=== PATIENT | female | born 1965 | race Hispanic/Latino ===

== ENCOUNTER 2016-09-13 10:33 | Inpatient (IN) | payer OTHER ==
[2016-09-13] MEDS ORDERED: ZOFRAN IV ONE (11:28)
[2016-09-13] MEDS ORDERED: NACL 0.9% 1000 ML 1,000 ML IV ONE (11:28)
--- NOTE | 2016-09-13 11:33 | Emergency Department Report ---
HPI - General Chief Complaint: Syncope Time Seen by Provider: 09/13/16 11:18 - HPI HPI: Room 7 The patient is a 50-year-old female presenting with a chief complaint of weakness. The patient states for 1 week she has felt weak. The patient was taken a blood pressure home and last week he was noted to be 90/70. Today the patient was found to be 58/42 at home also scolded brought to the emergency department. The patient is a history of hypertension and states she's been taking lisinopril every day except for today. Patient does admit to slight headache which began yesterday. Patient denies chest pain or shortness of breath. Patient does admit to dizziness nausea and vomiting. The patient states last night she noticed some blood in her stool. Patient denies history of melena Location: [see above] Duration: One week Quality:, Weakness Severity: Moderate Modifying factors: [see above] Context: [see above] Mode of transportation: [not driving] ED Past Medical Hx - Past Medical History Additional medical history: vasculitis, chronic pain - Surgical History Additional Surgical History: left hand - Family History Family history: no significant - Social History Smoking Status: Current Every Day Smoker (1/3 pack per day) Substance Use Type: None (denies illicit drug use) - Medications Home Medications: Home Medications Medication Instructions Recorded Confirmed Last Taken Type Lisinopril [Zestril] 20 mg PO QDAY 06/17/13 09/13/16 07/13/13 14:00 History Clindamycin [Clindamycin CAP] 300 mg PO BID 09/13/16 09/13/16 Unknown History Gabapentin [Neurontin] 300 mg PO TID 09/13/16 09/13/16 Unknown History Sulfamethoxazole/Trimethoprim 1 tab PO BID 09/13/16 09/13/16 Unknown History [Bactrim DS TAB] busPIRone [Buspar] 10 mg PO BID 09/13/16 09/13/16 Unknown History traZODone [Desyrel] 100 mg PO QHS 09/13/16 09/13/16 Unknown History ED Review of Systems ROS: Stated complaint: LOW BP Other details as noted in HPI Comment: All other systems reviewed and negative Constitutional: weakness Eyes: denies: eye pain, eye discharge, vision change ENT: denies: ear pain, throat pain Respiratory: denies: cough, shortness of breath, wheezing Cardiovascular: denies: chest pain, palpitations Endocrine: no symptoms reported Gastrointestinal: abdominal pain, nausea, vomiting Genitourinary: denies: urgency, dysuria, discharge Musculoskeletal: denies: back pain, joint swelling, arthralgia Skin: denies: rash, lesions Neurological: headache, weakness Psychiatric: denies: anxiety, depression Hematological/Lymphatic: denies: easy bleeding, easy bruising Physical Exam - Physical Exam Vital Signs: Vital Signs 09/13/16 10:39 Temperature 97.4 F L Pulse Rate 111 H Respiratory 20 Rate Blood Pressure 74/30 O2 Sat by Pulse 97 Oximetry Physical Exam: GENERAL: The patient is well-developed well-nourished female lying on stretcher appearing lethargic but not in any acute distress. [] HEENT: Normocephalic. Atraumatic. Extraocular motions are intact. Patient has moist mucous membranes. NECK: Supple. Trachea midline CHEST/LUNGS: Clear to auscultation. There is no respiratory distress noted. HEART/CARDIOVASCULAR: Regular. There is tachycardia. There is no gallop rub or murmur. ABDOMEN: Abdomen is soft, nontender. Patient has normal bowel sounds. There is no abdominal distention. SKIN: There is no rash. There is no edema. There is no diaphoresis. NEURO: The patient is awake, alert, and oriented. The patient is cooperative. The patient has no focal neurologic deficits. The patient has normal speech. Cranial nerves II through XII grossly intact, no drift MUSCULOSKELETAL: There is no evidence of acute injury. ED Course Vital Signs 09/13/16 10:39 Temperature 97.4 F L Pulse Rate 111 H Respiratory 20 Rate Blood Pressure 74/30 O2 Sat by Pulse 97 Oximetry ED Medical Decision Making - Lab Data Result diagrams: 09/13/16 11:28 09/13/16 11:28 Laboratory Tests 09/13/16 09/13/16 09/13/16 11:28 11:28 11:28 WBC 12.0 H RBC 4.50 Hgb 12.0 Hct 37.3 MCV 83 MCH 27 L MCHC 32 RDW 16.0 H Plt Count 430 Lymph % (Auto) 9.5 L [place] % (Auto) 7.8 H Eos % (Auto) 0.2 Baso % (Auto) 0.2 Lymph # 1.1 L [place] # 0.9 H Eos # 0.0 Baso # 0.0 Seg Neutrophils % 82.3 H Seg Neutrophils # 9.8 H PT 13.6 INR 1.05 APTT 29.3 Sodium 131 L Potassium 4.7 Chloride 90.9 L Carbon Dioxide 18 L Anion Gap 27 BUN 33 H Creatinine 3.7 H Estimated GFR 13 BUN/Creatinine Ratio 8.91 Glucose 125 H Calcium 9.4 Total Bilirubin 0.7 AST 22 ALT 14 Alkaline Phosphatase 105 Total Creatine Kinase CK-MB (CK-2) CK-MB (CK-2) Rel Index Troponin T Total Protein 7.4 Albumin 3.6 L Albumin/Globulin Ratio 0.9 Lipase 217 H Blood Type Antibody Screen 09/13/16 09/13/16 11:28 11:36 WBC RBC Hgb Hct MCV MCH MCHC RDW Plt Count Lymph % (Auto) [place] % (Auto) Eos % (Auto) Baso % (Auto) Lymph # [place] # Eos # Baso # Seg Neutrophils % Seg Neutrophils # PT INR APTT Sodium Potassium Chloride Carbon Dioxide Anion Gap BUN Creatinine Estimated GFR BUN/Creatinine Ratio Glucose Calcium Total Bilirubin AST ALT Alkaline Phosphatase Total Creatine Kinase 72 CK-MB (CK-2) 3.6 CK-MB (CK-2) Rel Index 5.0 H Troponin T < 0.010 Total Protein Albumin Albumin/Globulin Ratio Lipase Blood Type O POSITIVE Antibody Screen Negative - Radiology Data Radiology results: report reviewed (CT abdomen and pelvis, CT head), image reviewed (CT abdomen and pelvis, CT head) CT abdomen and pelvis purposes read by radiologist) (-abnormal left kidney. Further imaging is recommended. Cannot entirely exclude a left renal mass. Mildly dilated common bile duct without obvious cholelithiasis. Circumferential thickening of the ileum. Enteritis? Crohn's disease? CT head (read by radiologist)-no acute intracranial abnormality - Differential Diagnosis hypotension secondary to antihypertensive medication, sepsis, GI bleed Critical care attestation.: If time is entered above; I have spent that time in minutes in the direct care of this critically ill patient, excluding procedure time. ED Disposition Clinical Impression: Hypotension Disposition: OP ADMITTED IP TO THIS HOSP Is pt being admited?: Yes Does the pt Need Aspirin: No Condition: Serious Referrals: PRIMARY CARE, [Primary Care Provider] - 3-5 Days Time of Disposition: 17:20 (hospitalist notified) Blank Doc - Documentation Documentation: Central line note Consent was verbally Location: Right femoral The site was prepped and draped in a sterile fashion Site was anesthetized with lidocaine 1% approximately 10 mL Landmarks identified and needle introduced until return of dark nonpulsatile blood Blood was obtained on second attempt Guidewire introduced using Seldinger technique and triple lumen catheter placed over guidewire There was blood return from all 3 ports Catheter was secured to patient by adhesive The patient tolerated procedure well There were no complications
[2016-09-13 11:59] LABS: Basophils % (Auto) 0.2 % (0.0-1.8); Eosinophils % (Auto) 0.2 % (0.0-4.3); Hematocrit 37.3 % (30.3-42.9); Mean Corpuscular HGB Conc 32 % (30-34); Mean Corpuscular Hemoglobin 27 pg (28-32); Mean Corpuscular Volume 83 fl (79-97); Platelet Count 430 K/mm3 (140-440)
[2016-09-13 12:09] LABS: INR 1.05 (0.87-1.13)
[2016-09-13 12:10] LABS: Partial Thromboplastin Time 29.3 Sec. (24.2-36.6)
[2016-09-13 12:21] LABS: Creatine Kinase MB 3.6 ng/mL (0.0-4.0)
[2016-09-13 12:22] LABS: Creatine Kinase 72 units/L (30-135)
[2016-09-13 12:23] LABS: Albumin 3.6 g/dL (3.9-5); Albumin/Globulin Ratio 0.9 %; BUN/Creatinine Ratio 8.91; Bilirubin,Total 0.7 mg/dL (0.1-1.2); Calcium 9.4 mg/dL (8.4-10.2); Chloride 90.9 mmol/L (98-107); Potassium 4.7 mmol/L (3.6-5.0); Total Protein 7.4 g/dL (6.3-8.2)
--- NOTE | 2016-09-13 13:19 | Admit Criteria Form ---
Admission Criteria Documentation: CARDIOLOGY GRG Clinical Indications for Admission to Inpatient Care ( Place 'X' for any and all applicable criteria): Hospital admission is needed for appropriate care of the patient because of ANY ONE of the following (1): [ X] I. Hemodynamic instability as indicated by ALL of the following (1)(2)(3 )(4)(5) [X ]a) Vital signs or other findings not as expected for chronic patient condition or baseline [X ]b) Instability indicated by ANY ONE of the following: [ X]i) Hypotension [ ]ii) Symptomatic Tachycardia unresponsive to treatment ( e.g., analgesia, fluids, sedation as indicated) [ ]iii) Inadequate perfusion indicated by ANY ONE of the following: [ ] 1) Lactic acidosis (> 2 mmol/L) [ ] 2) New abnormal capillary refill (> 3 seconds) [ ] 3) Reduced urine output [ ] 4) New altered mental status [ ]iv) Orthostatic vital sign changes unresponsive to treatment (e.g., fluids) [ ]v) IV inotropic or vasopressor medication required to maintain adequate blood pressure or perfusion [ ] II. Severe heart failure as indicated by ANY ONE of the following(17)(18) [ ]a) Respiratory distress [ ]b) Hypotension [ ]c) Anasarca (refractory to outpatient therapy) [ ]d) Cardiac arrhythmias of immediate concern [ ]e) Myocardial ischemia [ ] III. Cardiac arrhythmias or findings of immediate concern indicated by ANY ONE of the following (19)(20): [ ] a) Heart rhythms that are inherently dangerous or unstable indicated by ANY ONE of the following (21)(22)(23): [ ] i) Resuscitated ventricular fibrillation or cardiac arrest [ ] ii) Ventricular escape rhythm [ ] iii) Sustained ventricular tachycardia (30 seconds or more of ventricular rhythm at greater than 100 beats per minute) [ ] iv) Nonsustained ventricular tachycardia and ANY ONE of the following: [ ] 1) Suspected cardiac ischemia as cause or consequence of ventricular tachycardia [ ] 2) In setting of acute myocarditis [ ] b) Unstable cardiac conduction defects indicated by ANY ONE of the following(23)(24)(25) [ ] i) Type II second-degree atrioventricular block [ ]ii) Third-degree atrioventricular block [ ]iii) New-onset left bundle branch block with suspected myocardial ischemia [ ]c) Any heart rhythm and ANY ONE of the following (21)(22)(26)(27) (28) [ ] i) Continuous long-term ECG monitoring needed (e.g., initiation of drug requiring monitoring for more than 24 hours) [ ] ii) Patient has automatic implanted cardioverter defibrillator that is repeatedly firing, malfunctioning, or in need of immediate adjustment of settings beyond the scope of ambulatory or observation care [ ]d) Heart rhythms of concern due to ANY ONE of the following: [ ] i) Hypotension [ ] ii) Respiratory distress [ ] iii) Association with other significant symptoms (e.g., bradycardia with syncope or ongoing dizziness, supraventricular tachycardia with chest pain (14)(15)(17) [ ] IV. Monitoring for cardiac contusion beyond the scope of observation care needed [A](30)(31)(32) [ ] V. Surgical or device complication (e.g., valve replacement complication , pacemaker dysfunction) (35)(41)(44)(45)(46) [ ] . Inpatient palliative care needed. [B](49) Also use Inpatient Palliative Care Criteria [ ] VII. Nonbacterial thrombotic (marantic) endocarditis (36)(43)(47)(48) [ ] VIII. Cardiology condition, symptom, or finding for which emergency and observation care has failed or are not considered appropriate. [ ] IX. Acute valvular disease requiring inpatient as indicated by ANY ONE of the following (41) [ ]a) Acute valvular regurgitation (42) [ ]b) Noninfectious valvulitis (43) [ ]c) Obstructive valve thrombosis [ ]d) Paravalvular leak [ ]e) Other significant valvular disorder remaining after emergency or observation level of care (as appropriate) [ ]X. Pericardial disease requiring inpatient treatment as indicated by ANY ONE of the following (33)(34)(35)(36)(37) [ ]a) Suspected tamponade (38)(39)(40) [ ]b) Hemopericardium [ ]c) Other significant pericardial disorder remaining after emergency or observation level of care (as appropriate) [ ] XI. Cardiac ischemia beyond scope of emergency and observation care. [ ] XII. Hypertension requiring inpatient treatment as indicated by ANY ONE of the following (6)(7)(8) [ ]a) SBP greater than 220 mm Hg or DBP greater than 120 mmHg despite treatment [ ]b) SBP greater than 140 mm Hg or DBP greater than 100 mm Hg with evidence of acute end organ damage as indicated by ANY ONE of the following [ ] i) Altered mental status [ ] ii) Acute renal failure as indicated by new onset of ANY ONE of the following (9)(10)(11)(12)(13) [ ]1) 3-fold rise in serum creatinine from baseline [ ]2) Serum creatinine greater than 4 mg/dL ( 354 micromoles/L) with acute rise greater than 0.5 mg/dL (44.2 micromoles/L) [ ]3) Reduction of more than 75% in estimated glomerular filtration rate from baseline [ ]4) Estimated glomerular filtration rate less than 35 mL/min/1.73m2 (0.59 mL/sec/1.73m2) in child up to 18 years of age [ ]5) Cessation of urine output indicated by ALL of the following [ ]A. Adequate volume status [ ]B. Inadequate urine output as indicated by ANY ONE of the following [ ]a. Urine output less than 0.3 mL/kg/hr for 24 hours [ ]b. Anuria (urine output less than 0.1 mL/kg/hr) for 12 hours [ ] iii) Aortic dissection [ ] iv) Myocardial Ischemia [ ] v) Left ventricular heart failure [ ]vi) Retinal Hemorrhage [ ]vii) Other significant finding [ ]c) Hypertension in child requiring inpatient treatment as indicated by ALL of the following(14)(15)(16) [ ] i) Outpatient treatment not effective, not available, or not appropriate [ ]ii) SBP or DBP greater than 95th percentile for age [ ]iii) Evidence of acute end organ damage as indicated by ANY ONE of the following [ ]1) Altered mental status [ ]2) Acute renal failure as indicated by new onset of ANY ONE of the following(9)(10)(11)(12)(13) [ ]A. 3-fold rise in serum creatinine from baseline [ ]B. Serum creatinine greater than 4 mg/dL (354 micromoles/L) with acute rise greater than 0.5 mg/dL (44.2 micromoles/L) [ ]C. Reduction of more than 75% in estimated glomerular filtration rate from baseline [ ]D. Estimated glomerular filtration rate less than 35 mL/min/1.73m2 (0.59 mL/sec/1.73m2) in child up to 18 years of age [ ]E. Cessation of urine output indicated by ALL of the following [ ]a. Adequate volume status [ ]b. Inadequate urine output as indicated by ANY ONE of the following [ ]i) Urine output less than 0.3 mL/kg/hr for 24 hours [ ]ii) Anuria ( urine output less than 0.1 mL/kg/hr) for 12 hours [ ]3) Severe headache [ ]4) Visual disturbance [ ]5) Retinal hemorrhage [ ]6) Other significant finding [ ]XIII. Complications of transplanted heart indicated by ANY ONE of the following(61): [ ]a) Acute graft rejection requiring inpatient management (eg, intravenous immunosuppression)(62)(63) [ ]b) Acute graft heart failure indicated by ANY ONE of the following(64): [ ]i) Hemodynamic instability [ ]ii) Cardiac arrhythmias of immediate concern [ ]iii) Pulmonary edema that is very severe (eg, mechanical ventilation needed, imminent or likely, need for 100% oxygen to keep oxygen saturation above 90%) [ ]iv) Pulmonary edema that is persistent as indicated by ALL of the following: [ ]1) New need for oxygen therapy to keep oxygen saturation above 90% (or increased FiO2 need from baseline) [ ]2) Has not improved sufficiently with emergency department or observation care IV diuretics or other heart failure treatments[E] [ ]v) Altered mental status that is severe or persistent [ ]vi) Increased creatinine (new on laboratory test) with reduction of more than 50% in estimated glomerular filtration rate from baseline [ ]vii) Progressively (ongoing) rising creatinine (known from past laboratory test) with reduction of more than 25% in estimated glomerular filtration rate from baseline [ ]viii) Acute renal failure [ ]ix) Acute peripheral ischemia (eg, examination shows pulseless, cool, mottled, or cyanotic extremity) [ ]x) Pulmonary artery catheter monitoring needed [ ]xi) Other sign or symptom of heart failure requiring inpatient treatment (ie, too severe or not responsive to outpatient and observation care treatment) [ ]c) Infection requiring inpatient management (eg, Hemodynamic instability, need for intravenous antimicrobial treatment)(66)(67)(68)(69)(70) [ ]d) Cardiac allograft vasculopathy requiring inpatient management ( eg evidence of cardiac ischemia)(71) [ ]e) Other complication of transplanted heart (eg, stroke, severe pulmonary hypertension, severe valvular dysfunction) requiring inpatient management(72) The original [facility] content created by [facility] has been revised. The portions of the content which have been revised are identified through the use of italic text or in bold, and [facility] has neither reviewed nor approved the modified material. All other unmodified content is copyright [facility] [employer]. Please see references footnoted in the original [facility] edition 2016 Admission Criteria Met: Yes
--- NOTE | 2016-09-13 14:42 | Cat Scan Report ---
CT scan of head without contrast: Findings Ventricles are normal in size and midline in location. No evidence of acute ischemia, hemorrhage or mass. 1 cm focal area of low attenuation left basal ganglia may be from chronic lacunar infarct. No hemorrhage. No extra-axial fluid collection. Normal brainstem and cerebellum. Normal sinuses and master air cells. Impression: No acute intracranial abnormality.
--- NOTE | 2016-09-13 15:00 | Cat Scan Report ---
CT OF THE ABDOMEN AND PELVIS WITHOUT CONTRAST HISTORY: Abdominal pain, renal failure. TECHNIQUE: Helical CT without contrast. Sagittal and coronal reformatted images. FINDINGS: The left kidney is abnormal. There are multiple small calcifications near the superior pole the left kidney. This does not have the typical appearance of renal stones. The etiology of this is unclear. Consider correlation with IV contrast exam, non-contrast MRI or ultrasound. The right kidney is unremarkable. Normal ureters and bladder. Normal adrenal glands. The common bile duct is mildly dilated measuring up to 1.2 cm. No obvious gallstones. No intrahepatic biliary dilatation. Please correlate with the patient's clinical presentation. Normal liver, pancreas, spleen, aorta, uterus and adnexa. There is mild circumferential thickening of the terminal small bowel loops. No obstruction or mass. The remainder of the bowel loops are within normal limits given no oral contrast was administered. Normal appendix. The lung bases are clear. Normal heart size. No suspicious bony lesion. IMPRESSION: Abnormal left kidney as outlined above. Further imaging is recommended. I cannot entirely exclude a left renal mass. Mildly dilated common bile duct without obvious cholelithiasis. Correlate with the patient and consider further evaluation with ultrasound. Circumferential thickening of the ileum. Enteritis? Crohn's disease?
[2016-09-13] MEDS ORDERED: XYLOCAINE 1% 20 mL ONE (18:13)
[2016-09-13] MEDS: LEVOPHED DRIP 4 MG/NS 250 ML 4 MG/250 ML BAG IV SCH ×10 (19:44→23:17)
--- NOTE | 2016-09-13 22:04 | History and Physical Report ---
History of Present Illness Date of examination: 09/13/16 Past History Past Medical History: hypertension Medications and Allergies Allergies Allergy/AdvReac Type Severity Reaction Status Date / Time aspirin Allergy Unknown Verified 09/13/16 10:39 cephalexin monohydrate Allergy Rash Verified 07/13/13 17:54 [From Keflex] Home Medications Medication Instructions Recorded Confirmed Last Taken Type Lisinopril [Zestril] 20 mg PO QDAY 06/17/13 09/13/16 07/13/13 14:00 History Clindamycin [Clindamycin CAP] 300 mg PO BID 09/13/16 09/13/16 Unknown History Gabapentin [Neurontin] 300 mg PO TID 09/13/16 09/13/16 Unknown History Sulfamethoxazole/Trimethoprim 1 tab PO BID 09/13/16 09/13/16 Unknown History [Bactrim DS TAB] busPIRone [Buspar] 10 mg PO BID 09/13/16 09/13/16 Unknown History traZODone [Desyrel] 100 mg PO QHS 09/13/16 09/13/16 Unknown History Active Meds: Active Medications Norepinephrine (Levophed Drip 4 Mg/Ns 250 Ml) 4 mg in 250 mls @ 7.5 mls/hr IV TITR JANNETH; 2 MCG/MIN PRN Reason: Protocol Last Admin: 09/13/16 21:53 Dose: 8 mcg/min, 30 mls/hr Review of Systems All systems: negative Exam - Constitutional Vitals: Temp Pulse Resp BP Pulse Ox 97.4 F L 101 H 14 75/48 96 09/13/16 10:39 09/13/16 18:30 09/13/16 19:00 09/13/16 19:00 09/13/16 19:00 General appearance: Present: no acute distress, well-nourished - EENT Eyes: Present: PERRL ENT: hearing intact, clear oral mucosa - Neck Neck: Present: supple, normal ROM - Respiratory Respiratory effort: normal Respiratory: bilateral: CTA - Cardiovascular Heart Sounds: Present: S1 & S2. Absent: rub, click - Extremities Extremities: pulses symmetrical, No edema Peripheral Pulses: within normal limits - Abdominal General gastrointestinal: Present: soft, non-tender, non-distended, normal bowel sounds Female genitourinary: Present: normal - Integumentary Integumentary: Present: clear, warm, dry - Musculoskeletal Musculoskeletal: gait normal, strength equal bilaterally - Psychiatric Psychiatric: appropriate mood/affect, intact judgment & insight - Neurologic Neurologic: CNII-XII intact, moves all extremities Results - Labs CBC & Chem 7: 09/13/16 11:28 09/13/16 11:28 Labs: Abnormal lab results 09/13/16 09/13/16 09/13/16 Range/Units 11:28 11:28 11:28 WBC 12.0 H (4.5-11.0) K/mm3 MCH 27 L (28-32) pg RDW 16.0 H (13.2-15.2) % Lymph % (Auto) 9.5 L (13.4-35.0) % [place] % (Auto) 7.8 H (0.0-7.3) % Lymph # 1.1 L (1.2-5.4) K/mm3 [place] # 0.9 H (0.0-0.8) K/mm3 Seg Neutrophils % 82.3 H (40.0-70.0) % Seg Neutrophils # 9.8 H (1.8-7.7) K/mm3 Sodium 131 L (137-145) mmol/L Chloride 90.9 L (98-107) mmol/L Carbon Dioxide 18 L (22-30) mmol/L BUN 33 H (7-17) mg/dL Creatinine 3.7 H (0.7-1.2) mg/dL Glucose 125 H (65-100) mg/dL CK-MB (CK-2) Rel Index 5.0 H (0-4) Albumin 3.6 L (3.9-5) g/dL Lipase 217 H (13-60) units/L Assessment and Plan - Patient Problems (1) Acute renal failure Current Visit: Yes Status: Acute Qualifiers: Acute renal failure type: with acute tubular necrosis Qualified Code(s): N17.0 - Acute kidney failure with tubular necrosis (2) Hypotension Current Visit: Yes Status: Acute Qualifiers: Hypotension type: H Trimester: T
[2016-09-13] MEDS ORDERED: TYLENOL PO PRN (22:05)
[2016-09-13] MEDS ORDERED: DULCOLAX PR PRN (22:05)
[2016-09-13] MEDS ORDERED: PERCOCET 5/325 PO PRN (22:05)
[2016-09-13] MEDS ORDERED: MILK OF MAGNESIA PO PRN (22:05)
[2016-09-14] MEDS: LEVOPHED DRIP 4 MG/NS 250 ML 4 MG/250 ML BAG IV SCH ×5 (00:03→19:26)
[2016-09-14] MEDS ORDERED: D5NS 1,000 ML IV ONE (01:25)
[2016-09-14] MEDS: D5NS 1,000 ML IV SCH ×2 (01:30→09:19)
[2016-09-14] MEDS: BUSPAR PO SCH ×3 (01:58→21:28)
[2016-09-14 04:22] LABS: Bacteria,Urine 1+ /HPF (Negative); Bilirubin,Urine NEG (Negative); Blood,Urine LG (Negative); Ketones,Urine NEG (Negative); Leukocyte Esterase,Urine TR (Negative); Mucus,Urine FEW /HPF; Nitrite,Urine NEG (Negative); Urobilinogen,Urine < 2.0 mg/dL (<2.0)
[2016-09-14 06:51] LABS: Basophils % (Auto) 0.2 % (0.0-1.8); Eosinophils % (Auto) 0.4 % (0.0-4.3); Hematocrit 33.6 % (30.3-42.9); Hemoglobin 11.2 gm/dl (10.1-14.3); Mean Corpuscular HGB Conc 33 % (30-34); Mean Corpuscular Hemoglobin 27 pg (28-32); Mean Corpuscular Volume 81 fl (79-97); Platelet Count 348 K/mm3 (140-440); Red Blood Count 4.13 M/mm3 (3.65-5.03); Red Cell Distribution Width 16.1 % (13.2-15.2); White Blood Count 6.9 K/mm3 (4.5-11.0)
[2016-09-14 07:12] LABS: Albumin 3.1 g/dL (3.9-5); Albumin/Globulin Ratio 1.1 %; BUN/Creatinine Ratio 8.64; Bilirubin,Total 0.6 mg/dL (0.1-1.2); Chloride 92.8 mmol/L (98-107); Total Protein 5.9 g/dL (6.3-8.2)
[2016-09-14] MEDS: NEURONTIN PO SCH ×3 (08:20→19:25)
--- NOTE | 2016-09-14 11:12 | Consultation ---
History of Present Illness - Reason for Consult Consult date: 09/14/16 acute renal failure - History of Present Illness 50 y.o F with no known history of CKD, according to her she does have active Hep C and never received tx for it, she came to the hospital for wworsening weakness and low BP, in the ER she was found in shock and was started on pressor and transferred to ICU. blood work did show severe renal failure and renal consultation was requested Past History Past Medical History: hypertension, other (HCV) Medications and Allergies Allergies Allergy/AdvReac Type Severity Reaction Status Date / Time aspirin Allergy Unknown Verified 09/13/16 10:39 cephalexin monohydrate Allergy Rash Verified 07/13/13 17:54 [From [employer]] Home Medications Medication Instructions Recorded Confirmed Last Taken Type Lisinopril [Zestril] 20 mg PO QDAY 06/17/13 09/13/16 07/13/13 14:00 History Clindamycin [Clindamycin CAP] 300 mg PO BID 09/13/16 09/13/16 Unknown History Gabapentin [Neurontin] 300 mg PO TID 09/13/16 09/13/16 Unknown History Sulfamethoxazole/Trimethoprim 1 tab PO BID 09/13/16 09/13/16 Unknown History [Bactrim DS TAB] busPIRone [Buspar] 10 mg PO BID 09/13/16 09/13/16 Unknown History traZODone [Desyrel] 100 mg PO QHS 09/13/16 09/13/16 Unknown History Active Meds: Active Medications Acetaminophen (Tylenol) 650 mg PO Q4H PRN PRN Reason: Pain MILD(1-3)/Fever >100.5/VALERA Bisacodyl (Dulcolax) 10 mg [place] QDAY PRN PRN Reason: Constipation unrelieved by MOM Buspirone HCl (Buspar) 10 mg PO BID JANNETH Last Admin: 09/14/16 01:58 Dose: 10 mg Gabapentin (Neurontin) 300 mg PO TID JANNETH Last Admin: 09/14/16 08:20 Dose: 300 mg Norepinephrine (Levophed Drip 4 Mg/Ns 250 Ml) 4 mg in 250 mls @ 7.5 mls/hr IV TITR JANNETH; 2 MCG/MIN PRN Reason: Protocol Last Admin: 09/14/16 09:15 Dose: 18 mcg/min, 67.5 mls/hr Dextrose/Sodium Chloride (D5ns) 1,000 mls @ 125 mls/hr IV DIRECT JANNETH Last Admin: 09/14/16 09:19 Dose: 125 mls/hr Magnesium Hydroxide (Milk Of Magnesia) 30 ml PO Q4H PRN PRN Reason: Constipation Ondansetron HCl (Zofran) 4 mg IV Q8H PRN PRN Reason: N/V unrelieved by Reglan Oxycodone/Acetaminophen (Percocet 5/325) 1 tab PO Q6H PRN PRN Reason: Pain, Moderate (4-6) Review of Systems All systems: negative (weakness, dizziness, low BP) Exam - Vital Signs Vital signs: Vital Signs Temp Pulse Resp BP Pulse Ox 97.4 F L 111 H 20 74/30 97 09/13/16 10:39 09/13/16 10:39 09/13/16 10:39 09/13/16 10:39 09/13/16 10:39 - General Appearance General appearance: well-developed, well-nourished EENT: ATNC, PERRL, mucous membranes moist Neck: Present: neck supple Respiratory: Clear to Ascultation Heart: regular, S1S2 Gastrointestinal: Present: normoactive bowel sounds. Absent: tenderness, distended Integumentary: no rash, warm and dry Neurologic: no focal deficit, no asterixis, alert and oriented x3 Musculoskeletal: Present: other (no edema in BLE) Psychiatric: mood/affect appropriate, cooperative Results - Lab Results 09/14/16 06:30 09/14/16 06:30 Most recent lab results Calcium 8.0 mg/dL (8.4-10.2) L 09/14/16 06:30 Assessment and Plan 1. 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 Sepsis cultures are pending
--- NOTE | 2016-09-14 11:29 | Progress Note ---
Assessment and Plan Assessment and plan: Patient remains critically ill on life supporting medications of levo fed unable to wean. Exact etiology unknown. Total Time Spent with Patient (Minutes): 33 - Patient Problems (1) Hyponatremia Current Visit: Yes Status: Acute Plan to address problem: Hypernatremia at present sponging to ages of fluid renal following. (2) Acute renal failure Current Visit: Yes Status: Acute Qualifiers: Acute renal failure type: with acute tubular necrosis Qualified Code(s): N17.0 - Acute kidney failure with tubular necrosis Plan to address problem: Exact etiology of renal failure unknown. Creatinine 3.7 and has not changed much since yesterday. Still most likely etiology ATN continue to volume loss. Patient was going to detox at the time. When she left the facility was hypotensive. Patient states she had not been eating and drinking for quite some time. Because she was going to detox. This is most likely etiology. We are where that there are other potential etiologies including chronic kidney disease with history of hypertension untreated hepatitis C. (3) Hypotension Current Visit: Yes Status: Acute Qualifiers: Hypotension type: neurogenic orthostatic hypotension Trimester: T Qualified Code(s): G90.3 - Multi-system degeneration of the autonomic nervous system Plan to address problem: Patient hypotension shock most likely secondary to volume. It may take a little while longer for patient to respond because of going through detox we'll continue to 5 supportive care continue hydration. Current workup is being done with eos and further evaluation for chronic kidney disease by nephrology. (4) Shock Current Visit: Yes Status: Acute Plan to address problem: T need to treat empirically for possible infection. No clear evidence of sepsis has been located this time. (5) Abdominal pain Current Visit: Yes Status: Acute Qualifiers: Abdominal location: lower abdomen, unspecified Qualified Code(s): R10.30 - Lower abdominal pain, unspecified Plan to address problem: Patient had abdominal pain with some evidence of rectal bleeding. CT scan evaluated appeared to have possible thickening of bowel wall consistent with enteritis versus Crohn's disease. GI consult to assist in evaluation. Patient also has small amount of rectal bleeding is well. May eventually need colonoscopy. (6) Rectal bleeding Current Visit: Yes Status: Acute Plan to address problem: GI following May of knee colonoscopy. (7) Drug abuse Current Visit: Yes Status: Acute Plan to address problem: No evidence of withdrawal this time. Patient was going to detox was not eating with not drinking. Became hypotensive I think this is the most likely trigger. Workup is still pending. We'll await results of labs and response to volume replacement. History Interval history: Patient states she feels better today. States no longer having episodes of nausea. Patient however remains hypotensive. Remains on levo fed. Unable to wean off levo fed today. Hospitalist Physical - Constitutional Vitals: Temp Pulse Resp BP Pulse Ox 98.5 F 92 H 14 93/58 97 09/14/16 09:00 09/14/16 09:30 09/14/16 09:30 09/14/16 09:30 09/14/16 09:30 General appearance: Present: no acute distress, well-nourished - EENT Eyes: Present: PERRL, EOM intact ENT: hearing intact, clear oral mucosa, dentition normal - Neck Neck: Present: supple, normal ROM. Absent: rigidity, enlarged thyroid, masses or JVD - Respiratory Respiratory: bilateral: CTA - Cardiovascular Rhythm: regular Heart Sounds: Present: S1 & S2 - Extremities Extremities: no ischemia, pulses intact, No edema, normal temperature, normal color Peripheral Pulses: within normal limits - Abdominal General gastrointestinal: soft, non-tender, distended, normal bowel sounds, other (mild ascites.) - Integumentary Integumentary: Present: clear, warm. Absent: jaundice, rash - Psychiatric Psychiatric: appropriate mood/affect, intact judgment & insight, cooperative - Neurologic Neurologic: CNII-XII intact, no focal deficits, moves all extremities, gait normal Results - Labs CBC & Chem 7: 09/14/16 06:30 09/14/16 06:30 Labs: Laboratory Last Values WBC 6.9 K/mm3 (4.5-11.0) 09/14/16 06:30 RBC 4.13 M/mm3 (3.65-5.03) 09/14/16 06:30 Hgb 11.2 gm/dl (10.1-14.3) 09/14/16 06:30 Hct 33.6 % (30.3-42.9) 09/14/16 06:30 MCV 81 fl (79-97) 09/14/16 06:30 MCH 27 pg (28-32) L 09/14/16 06:30 MCHC 33 % (30-34) 09/14/16 06:30 RDW 16.1 % (13.2-15.2) H 09/14/16 06:30 Plt Count 348 K/mm3 (140-440) 09/14/16 06:30 Lymph % (Auto) 14.8 % (13.4-35.0) 09/14/16 06:30 [place] % (Auto) 8.2 % (0.0-7.3) H 09/14/16 06:30 Eos % (Auto) 0.4 % (0.0-4.3) 09/14/16 06:30 Baso % (Auto) 0.2 % (0.0-1.8) 09/14/16 06:30 Lymph # 1.0 K/mm3 (1.2-5.4) L 09/14/16 06:30 [place] # 0.6 K/mm3 (0.0-0.8) 09/14/16 06:30 Eos # 0.0 K/mm3 (0.0-0.4) 09/14/16 06:30 Baso # 0.0 K/mm3 (0.0-0.1) 09/14/16 06:30 Seg Neutrophils % 76.4 % (40.0-70.0) H 09/14/16 06:30 Seg Neutrophils # 5.3 K/mm3 (1.8-7.7) 09/14/16 06:30 PT 13.6 Sec. (12.2-14.9) 09/13/16 11:28 INR 1.05 (0.87-1.13) 09/13/16 11:28 APTT 29.3 Sec. (24.2-36.6) 09/13/16 11:28 Sodium 130 mmol/L (137-145) L 09/14/16 06:30 Potassium 4.0 mmol/L (3.6-5.0) 09/14/16 06:30 Chloride 92.8 mmol/L (98-107) L 09/14/16 06:30 Carbon Dioxide 18 mmol/L (22-30) L 09/14/16 06:30 Anion Gap 23 mmol/L 09/14/16 06:30 BUN 32 mg/dL (7-17) H 09/14/16 06:30 Creatinine 3.7 mg/dL (0.7-1.2) H 09/14/16 06:30 Estimated GFR 13 ml/min 09/14/16 06:30 BUN/Creatinine Ratio 8.64 % 09/14/16 06:30 Glucose 147 mg/dL (65-100) H 09/14/16 06:30 Calcium 8.0 mg/dL (8.4-10.2) L 09/14/16 06:30 Total Bilirubin 0.6 mg/dL (0.1-1.2) 09/14/16 06:30 AST 19 units/L (5-40) 09/14/16 06:30 ALT 12 units/L (7-56) 09/14/16 06:30 Alkaline Phosphatase 96 units/L (35-129) 09/14/16 06:30 Total Creatine Kinase 72 units/L (30-135) 09/13/16 11:28 CK-MB (CK-2) 3.6 ng/mL (0.0-4.0) 09/13/16 11:28 CK-MB (CK-2) Rel Index 5.0 (0-4) H 09/13/16 11:28 Troponin T < 0.010 ng/mL (0.00-0.029) 09/13/16 11:28 Total Protein 5.9 g/dL (6.3-8.2) L D 09/14/16 06:30 Albumin 3.1 g/dL (3.9-5) L 09/14/16 06:30 Albumin/Globulin Ratio 1.1 % 09/14/16 06:30 Lipase 217 units/L (13-60) H 09/13/16 11:28 Urine Color Yellow (Yellow) 09/14/16 02:30 Urine Turbidity Slightly-cloudy (Clear) 09/14/16 02:30 Urine pH 5.0 (5.0-7.0) 09/14/16 02:30 Ur Specific [place] 1.009 (1.003-1.030) 09/14/16 02:30 Urine Protein 30 mg/dl mg/dL (Negative) 09/14/16 02:30 Urine Glucose (UA) 50 mg/dL (Negative) 09/14/16 02:30 Urine Ketones Neg mg/dL (Negative) 09/14/16 02:30 Urine Blood Lg (Negative) 09/14/16 02:30 Urine Nitrite Neg (Negative) 09/14/16 02:30 Urine Bilirubin Neg (Negative) 09/14/16 02:30 Urine Urobilinogen < 2.0 mg/dL (<2.0) 09/14/16 02:30 Ur Leukocyte Esterase Tr (Negative) 09/14/16 02:30 Urine WBC (Auto) 13.0 /HPF (0.0-6.0) H 09/14/16 02:30 Urine RBC (Auto) 41.0 /HPF (0.0-6.0) 09/14/16 02:30 U Epithel Cells (Auto) < 1.0 /HPF (0-13.0) 09/14/16 02:30 Urine Bacteria (Auto) 1+ /HPF (Negative) 09/14/16 02:30 Urine Mucus Few /HPF 09/14/16 02:30 Blood Type O POSITIVE 09/13/16 11:36 Antibody Screen Negative 09/13/16 11:36 - Imaging and Cardiology Chest x-ray: image reviewed CT scan - abdomen: image reviewed CT Scan - head: report reviewed
--- NOTE | 2016-09-14 11:39 | Consultation ---
History of Present Illness Consult date: 09/14/16 Requesting physician: CHERYL SINGH Reason for consult: other (Severe Sepsis; GLEN) History of present illness: PULMONARY/CCM CONSULT NOTE (Full dictation # [id number]) Please see dictated notes for full details Past History Past Medical History: hypertension, other (HCV) Medications and Allergies Allergies Allergy/AdvReac Type Severity Reaction Status Date / Time aspirin Allergy Unknown Verified 09/13/16 10:39 cephalexin monohydrate Allergy Rash Verified 07/13/13 17:54 [From [employer]] Home Medications Medication Instructions Recorded Confirmed Last Taken Type Lisinopril [Zestril] 20 mg PO QDAY 06/17/13 09/13/16 07/13/13 14:00 History Clindamycin [Clindamycin CAP] 300 mg PO BID 09/13/16 09/13/16 Unknown History Gabapentin [Neurontin] 300 mg PO TID 09/13/16 09/13/16 Unknown History Sulfamethoxazole/Trimethoprim 1 tab PO BID 09/13/16 09/13/16 Unknown History [Bactrim DS TAB] busPIRone [Buspar] 10 mg PO BID 09/13/16 09/13/16 Unknown History traZODone [Desyrel] 100 mg PO QHS 09/13/16 09/13/16 Unknown History Active Meds: Active Medications Acetaminophen (Tylenol) 650 mg PO Q4H PRN PRN Reason: Pain MILD(1-3)/Fever >100.5/VALERA Bisacodyl (Dulcolax) 10 mg [place] QDAY PRN PRN Reason: Constipation unrelieved by MOM Buspirone HCl (Buspar) 10 mg PO BID [facility] Last Admin: 09/14/16 01:58 Dose: 10 mg Gabapentin (Neurontin) 300 mg PO TID JANNETH Last Admin: 09/14/16 08:20 Dose: 300 mg Norepinephrine (Levophed Drip 4 Mg/Ns 250 Ml) 4 mg in 250 mls @ 7.5 mls/hr IV TITR JANNETH; 2 MCG/MIN PRN Reason: Protocol Last Admin: 09/14/16 09:15 Dose: 18 mcg/min, 67.5 mls/hr Sodium Bicarbonate 75 meq/ (Sodium Chloride) 1,075 mls @ 75 mls/hr IV DIRECT JANNETH Magnesium Hydroxide (Milk Of Magnesia) 30 ml PO Q4H PRN PRN Reason: Constipation Ondansetron HCl (Zofran) 4 mg IV Q8H PRN PRN Reason: N/V unrelieved by Reglan Oxycodone/Acetaminophen (Percocet 5/325) 1 tab PO Q6H PRN PRN Reason: Pain, Moderate (4-6) Physical Examination Vital signs: Vital Signs Temp Pulse Resp BP Pulse Ox 97.4 F L 111 H 20 74/30 97 09/13/16 10:39 09/13/16 10:39 09/13/16 10:39 09/13/16 10:39 09/13/16 10:39 Results - Laboratory Findings CBC and BMP: 09/15/16 07:00 09/15/16 07:00 PT/INR, D-dimer PT 13.6 Sec. (12.2-14.9) 09/13/16 11:28 INR 1.05 (0.87-1.13) 09/13/16 11:28 Abnormal lab findings: Abnormal Labs 09/14/16 09/14/16 09/14/16 02:30 06:30 06:30 MCH 27 L RDW 16.1 H [place] % (Auto) 8.2 H Lymph # 1.0 L Seg Neutrophils % 76.4 H Sodium 130 L Chloride 92.8 L Carbon Dioxide 18 L BUN 32 H Creatinine 3.7 H Glucose 147 H Calcium 8.0 L Total Protein 5.9 L D Albumin 3.1 L Urine WBC (Auto) 13.0 H
[2016-09-14] MEDS ORDERED: NACL 0.45% 1000 ML 1,000 ML with SODIUM BICARBONATE 75 MEQ IV SCH (12:00)
--- NOTE | 2016-09-14 14:01 | Ultrasound Report ---
RENAL ULTRASOUND: 09/14/16 10:43:00 CLINICAL: Acute renal failure. FINDINGS: High resolution ultrasound demonstrated normal nondilated renal collecting systems and ureters. Mild increased echogenicity of the kidneys. A partially calcified left upper pole solid renal mass measures 5.4 x 4.8 cm and correlates with calcifications identified on recent CT. The left kidney measures 10.7 x 4.5 x 4.6 cm. The left renal parenchyma measures 1.3 cm in maximum thickness. The right kidney measures 12.3 x 6.1 x 4.7 cm-cm. The renal parenchyma measures 1.9-cm in thickness. IMPRESSION: 1. Bilateral medical renal disease no hydronephrosis. 2. A solid partially calcified 5.4 cm left upper pole renal mass is likely a renal cell carcinoma.
--- NOTE | 2016-09-14 16:36 | Consultation ---
History of Present Illness - Reason for Consult Consult date: 09/14/16 - History of Present Illness See Dictation note. Past History Past Medical History: hypertension, other (HCV) Medications and Allergies Allergies Allergy/AdvReac Type Severity Reaction Status Date / Time aspirin Allergy Unknown Verified 09/13/16 10:39 cephalexin monohydrate Allergy Rash Verified 07/13/13 17:54 [From Keflex] Home Medications Medication Instructions Recorded Confirmed Last Taken Type Lisinopril [Zestril] 20 mg PO QDAY 06/17/13 09/13/16 07/13/13 14:00 History Clindamycin [Clindamycin CAP] 300 mg PO BID 09/13/16 09/13/16 Unknown History Gabapentin [Neurontin] 300 mg PO TID 09/13/16 09/13/16 Unknown History Sulfamethoxazole/Trimethoprim 1 tab PO BID 09/13/16 09/13/16 Unknown History [Bactrim DS TAB] busPIRone [Buspar] 10 mg PO BID 09/13/16 09/13/16 Unknown History traZODone [Desyrel] 100 mg PO QHS 09/13/16 09/13/16 Unknown History Active Meds: Active Medications Acetaminophen (Tylenol) 650 mg PO Q4H PRN PRN Reason: Pain MILD(1-3)/Fever >100.5/VALERA Bisacodyl (Dulcolax) 10 mg [place] QDAY PRN PRN Reason: Constipation unrelieved by MOM Buspirone HCl (Buspar) 10 mg PO BID [facility] Last Admin: 09/14/16 16:08 Dose: 10 mg Gabapentin (Neurontin) 300 mg PO TID [facility] Last Admin: 09/14/16 13:38 Dose: 300 mg Norepinephrine (Levophed Drip 4 Mg/Ns 250 Ml) 4 mg in 250 mls @ 7.5 mls/hr IV TITR JANNETH; 2 MCG/MIN PRN Reason: Protocol Last Admin: 09/14/16 13:45 Dose: 16 mcg/min, 60 mls/hr Sodium Bicarbonate 75 meq/ (Sodium Chloride) 1,075 mls @ 75 mls/hr IV DIRECT JANNETH Magnesium Hydroxide (Milk Of Magnesia) 30 ml PO Q4H PRN PRN Reason: Constipation Ondansetron HCl (Zofran) 4 mg IV Q8H PRN PRN Reason: N/V unrelieved by Reglan Oxycodone/Acetaminophen (Percocet 5/325) 1 tab PO Q6H PRN PRN Reason: Pain, Moderate (4-6) Exam - Constitutional Vitals: Temp Pulse Resp BP Pulse Ox 98.5 F 98 H 15 93/49 100 09/14/16 12:21 09/14/16 15:11 09/14/16 15:11 09/14/16 15:11 09/14/16 15:11 Results - Labs CBC & Chem 7: 09/14/16 06:30 09/14/16 06:30 Labs: Abnormal lab results 09/14/16 09/14/16 09/14/16 Range/Units 02:30 06:30 06:30 MCH 27 L (28-32) pg RDW 16.1 H (13.2-15.2) % [place] % (Auto) 8.2 H (0.0-7.3) % Lymph # 1.0 L (1.2-5.4) K/mm3 Seg Neutrophils % 76.4 H (40.0-70.0) % Sodium 130 L (137-145) mmol/L Chloride 92.8 L (98-107) mmol/L Carbon Dioxide 18 L (22-30) mmol/L BUN 32 H (7-17) mg/dL Creatinine 3.7 H (0.7-1.2) mg/dL Glucose 147 H (65-100) mg/dL Calcium 8.0 L (8.4-10.2) mg/dL Total Protein 5.9 L D (6.3-8.2) g/dL Albumin 3.1 L (3.9-5) g/dL Urine WBC (Auto) 13.0 H (0.0-6.0) /HPF Rheumatoid Factor (0-13) IU/ml 09/14/16 Range/Units 11:30 MCH (28-32) pg RDW (13.2-15.2) % [place] % (Auto) (0.0-7.3) % Lymph # (1.2-5.4) K/mm3 Seg Neutrophils % (40.0-70.0) % Sodium (137-145) mmol/L Chloride (98-107) mmol/L Carbon Dioxide (22-30) mmol/L BUN (7-17) mg/dL Creatinine (0.7-1.2) mg/dL Glucose (65-100) mg/dL Calcium (8.4-10.2) mg/dL Total Protein (6.3-8.2) g/dL Albumin (3.9-5) g/dL Urine WBC (Auto) (0.0-6.0) /HPF Rheumatoid Factor 889 H (0-13) IU/ml Assessment and Plan Pt off opiates x 12 days, and out of Detox on 09/12, adm 09/13 with severe vol depletion and hypotension, with 1 d of crampy lower abd pain, N/V, and occ BRB on TP. Likely has acute enteritis, self-limited. - replete volume - adv diet - outpatient colonoscopy - outpatient eval of HCV
[2016-09-15] MEDS: LEVOPHED DRIP 4 MG/NS 250 ML 4 MG/250 ML BAG IV SCH ×2 (00:43→07:50)
[2016-09-15] MEDS: ZOFRAN IV PRN (00:46)
[2016-09-15] MEDS: SODIUM BICARBONATE 75 MEQ in NACL 0.45% 1000 ML 1,000 ML IV SCH ×2 (00:47→20:00)
[2016-09-15 07:36] LABS: BUN/Creatinine Ratio 8.26; Calcium 8.1 mg/dL (8.4-10.2); Chloride 101.3 mmol/L (98-107); Phosphorous 2.1 mg/dL (2.5-4.5); Potassium 4.4 mmol/L (3.6-5.0)
[2016-09-15 07:49] LABS: Basophils % (Auto) 0.3 % (0.0-1.8); Hematocrit 31.2 % (30.3-42.9); Hemoglobin 10.4 gm/dl (10.1-14.3); Mean Corpuscular HGB Conc 33 % (30-34); Mean Corpuscular Hemoglobin 27 pg (28-32); Mean Corpuscular Volume 82 fl (79-97); Platelet Count 296 K/mm3 (140-440); White Blood Count 3.4 K/mm3 (4.5-11.0)
[2016-09-15] MEDS: NEURONTIN PO SCH ×3 (07:51→20:01)
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
--- NOTE | 2016-09-15 10:47 | Progress Note ---
Assessment and Plan 1. 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 Sepsis cultures are pending Subjective Date of service: 09/15/16 Principal diagnosis: acute renal failure Interval history: feels better this AM Objective - Vital Signs Vital signs: Vital Signs - 12hr 09/14/16 09/14/16 09/14/16 22:51 23:00 23:11 Temperature Pulse Rate 99 H 98 H 97 H Pulse Rate [ Right Apical] Respiratory 19 18 17 Rate Blood Pressure 128/70 117/73 128/70 O2 Sat by Pulse 98 97 98 Oximetry 09/14/16 09/14/16 09/14/16 23:21 23:30 23:41 Temperature Pulse Rate 102 H 100 H 97 H Pulse Rate [ Right Apical] Respiratory 17 18 19 Rate Blood Pressure 125/69 117/68 117/73 O2 Sat by Pulse 98 98 96 Oximetry 09/14/16 09/15/16 09/15/16 23:51 00:00 00:11 Temperature 98.8 F Pulse Rate 99 H 98 H 98 H Pulse Rate [ 78 Right Apical] Respiratory 21 18 19 Rate Blood Pressure 107/77 129/83 129/83 O2 Sat by Pulse 96 96 96 Oximetry 09/15/16 09/15/16 09/15/16 00:21 00:30 00:41 Temperature Pulse Rate 100 H 99 H 101 H Pulse Rate [ Right Apical] Respiratory 19 18 18 Rate Blood Pressure 127/85 110/67 110/67 O2 Sat by Pulse 97 98 98 Oximetry 09/15/16 09/15/16 09/15/16 00:51 01:00 01:11 Temperature Pulse Rate 103 H 100 H 99 H Pulse Rate [ Right Apical] Respiratory 16 18 18 Rate Blood Pressure 119/69 111/63 111/63 O2 Sat by Pulse 97 96 97 Oximetry 09/15/16 09/15/16 09/15/16 01:21 01:30 01:41 Temperature Pulse Rate 110 H 107 H 88 Pulse Rate [ Right Apical] Respiratory 16 17 16 Rate Blood Pressure 126/77 108/56 108/56 O2 Sat by Pulse 96 97 98 Oximetry 09/15/16 09/15/16 09/15/16 01:51 02:00 02:11 Temperature Pulse Rate 98 H 91 H 93 H Pulse Rate [ Right Apical] Respiratory 19 21 22 Rate Blood Pressure 129/70 140/83 140/83 O2 Sat by Pulse 97 98 97 Oximetry 09/15/16 09/15/16 09/15/16 02:21 02:30 02:41 Temperature Pulse Rate 100 H 97 H 97 H Pulse Rate [ Right Apical] Respiratory 17 17 17 Rate Blood Pressure 137/83 138/85 138/85 O2 Sat by Pulse 97 97 97 Oximetry 09/15/16 09/15/16 09/15/16 02:51 03:00 03:11 Temperature Pulse Rate 98 H 95 H 91 H Pulse Rate [ Right Apical] Respiratory 18 17 19 Rate Blood Pressure 131/85 145/87 145/87 O2 Sat by Pulse 96 97 96 Oximetry 09/15/16 09/15/16 09/15/16 03:21 03:30 03:41 Temperature Pulse Rate 92 H 103 H 97 H Pulse Rate [ Right Apical] Respiratory 17 17 16 Rate Blood Pressure 157/91 153/78 153/78 O2 Sat by Pulse 98 97 98 Oximetry 09/15/16 09/15/16 09/15/16 03:51 04:00 04:11 Temperature 98.5 F Pulse Rate 98 H 96 H 98 H Pulse Rate [ Right Apical] Respiratory 19 21 18 Rate Blood Pressure 125/92 143/70 143/70 O2 Sat by Pulse 98 97 97 Oximetry 09/15/16 09/15/16 09/15/16 04:21 04:30 04:41 Temperature Pulse Rate 99 H 98 H 98 H Pulse Rate [ Right Apical] Respiratory 18 19 18 Rate Blood Pressure 133/72 143/71 143/71 O2 Sat by Pulse 98 96 97 Oximetry 09/15/16 09/15/16 09/15/16 04:51 05:01 05:11 Temperature Pulse Rate 96 H 94 H 99 H Pulse Rate [ Right Apical] Respiratory 19 22 24 Rate Blood Pressure 131/74 156/97 156/97 O2 Sat by Pulse 97 97 96 Oximetry 09/15/16 09/15/16 09/15/16 05:21 05:30 05:41 Temperature Pulse Rate 91 H 89 97 H Pulse Rate [ Right Apical] Respiratory 19 19 21 Rate Blood Pressure 156/90 162/75 129/86 O2 Sat by Pulse 97 96 97 Oximetry 09/15/16 09/15/16 09/15/16 05:51 06:01 06:11 Temperature Pulse Rate 96 H 97 H 95 H Pulse Rate [ Right Apical] Respiratory 18 19 16 Rate Blood Pressure 125/83 158/94 158/94 O2 Sat by Pulse 97 99 97 Oximetry 09/15/16 09/15/16 09/15/16 06:21 06:30 06:41 Temperature Pulse Rate 89 89 91 H Pulse Rate [ Right Apical] Respiratory 18 20 16 Rate Blood Pressure 147/94 157/94 157/94 O2 Sat by Pulse 98 98 99 Oximetry 09/15/16 09/15/16 09/15/16 06:50 07:00 07:11 Temperature Pulse Rate 92 H 91 H 89 Pulse Rate [ Right Apical] Respiratory 16 17 19 Rate Blood Pressure 136/88 147/93 147/93 O2 Sat by Pulse 98 98 98 Oximetry 09/15/16 09/15/16 09/15/16 07:21 07:31 07:41 Temperature Pulse Rate 89 105 H 102 H Pulse Rate [ Right Apical] Respiratory 19 21 14 Rate Blood Pressure 147/93 123/73 123/73 O2 Sat by Pulse 98 97 98 Oximetry 09/15/16 09/15/16 09/15/16 07:51 08:00 08:01 Temperature 98.5 F Pulse Rate 97 H 94 H Pulse Rate [ Right Apical] Respiratory 15 13 Rate Blood Pressure 123/73 123/73 O2 Sat by Pulse 97 99 Oximetry 09/15/16 09/15/16 09/15/16 08:11 08:21 08:30 Temperature Pulse Rate 103 H 94 H 90 Pulse Rate [ Right Apical] Respiratory 16 22 15 Rate Blood Pressure 123/73 143/72 133/79 O2 Sat by Pulse 98 98 99 Oximetry 09/15/16 09/15/16 09/15/16 08:41 08:51 09:00 Temperature Pulse Rate 92 H 91 H 93 H Pulse Rate [ Right Apical] Respiratory 21 20 19 Rate Blood Pressure 133/79 133/79 141/90 O2 Sat by Pulse 97 98 97 Oximetry 09/15/16 09/15/16 09/15/16 09:11 09:21 09:31 Temperature Pulse Rate 89 107 H 93 H Pulse Rate [ Right Apical] Respiratory 20 24 19 Rate Blood Pressure 141/90 141/90 141/90 O2 Sat by Pulse 98 100 98 Oximetry - General Appearance General appearance: well-developed, well-nourished EENT: ATNC, PERRL, mucous membranes moist Neck: no JVD, no carotid bruit Respiratory: Present: Clear to Ascultation. Absent: Ronchi Cardiology: regular, S1S2 Gastrointestinal: normoactive bowel sounds, no tenderness, no distended, no masses Integumentary: no rash, warm and dry Neurologic: no focal deficit, no asterixis, alert and oriented x3 Musculoskeletal: other (no edema in BLE) Psychiatric: mood/affect appropriate, cooperative - Lab 09/15/16 07:00 09/15/16 07:00 Most recent lab results Calcium 8.1 mg/dL (8.4-10.2) L 09/15/16 07:00 Phosphorus 2.1 mg/dL (2.5-4.5) L 09/15/16 07:00
[2016-09-15] MEDS: BUSPAR PO SCH ×2 (13:38→22:00)
--- NOTE | 2016-09-15 13:42 | Progress Note ---
Assessment and Plan - Patient Problems (1) Sepsis syndrome Current Visit: Yes Status: Acute Plan to address problem: - cultures NGTD - off vasopressors - acidosis corrected - likely related to IVVD - follow off AB's (2) Acute renal failure Current Visit: Yes Status: Acute Qualifiers: Acute renal failure type: with acute tubular necrosis Qualified Code(s): N17.0 - Acute kidney failure with tubular necrosis Plan to address problem: - improving - nephrology on case - IVVD /? ATN component - follow I's & O's (3) Hypotension Current Visit: Yes Status: Acute Qualifiers: Hypotension type: neurogenic orthostatic hypotension Trimester: T Qualified Code(s): G90.3 - Multi-system degeneration of the autonomic nervous system Plan to address problem: - see sepsis above (4) Discharge planning issues Current Visit: Yes Status: Acute Plan to address problem: - transfer to medical floor Subjective Date of service: 09/15/16 Principal diagnosis: acute renal failure Interval history: seen and examined at bedside; 24hour events reviewed; nursing and respiratory care staff consulted; no adverse overnight events reported to me; resting peacefully; now off levophed drip; no N/V/F/C Objective Vital Signs - 12hr 09/15/16 09/15/16 09/15/16 01:51 02:00 02:11 Temperature Pulse Rate 98 H 91 H 93 H Respiratory 19 21 22 Rate Blood Pressure 129/70 140/83 140/83 O2 Sat by Pulse 97 98 97 Oximetry 09/15/16 09/15/16 09/15/16 02:21 02:30 02:41 Temperature Pulse Rate 100 H 97 H 97 H Respiratory 17 17 17 Rate Blood Pressure 137/83 138/85 138/85 O2 Sat by Pulse 97 97 97 Oximetry 09/15/16 09/15/16 09/15/16 02:51 03:00 03:11 Temperature Pulse Rate 98 H 95 H 91 H Respiratory 18 17 19 Rate Blood Pressure 131/85 145/87 145/87 O2 Sat by Pulse 96 97 96 Oximetry 09/15/16 09/15/16 09/15/16 03:21 03:30 03:41 Temperature Pulse Rate 92 H 103 H 97 H Respiratory 17 17 16 Rate Blood Pressure 157/91 153/78 153/78 O2 Sat by Pulse 98 97 98 Oximetry 02/07/2009/15/16 09/15/16 03:51 04:00 04:11 Temperature 98.5 F Pulse Rate 98 H 96 H 98 H Respiratory 19 21 18 Rate Blood Pressure 125/92 143/70 143/70 O2 Sat by Pulse 98 97 97 Oximetry 09/15/16 09/15/16 09/15/16 04:21 04:30 04:41 Temperature Pulse Rate 99 H 98 H 98 H Respiratory 18 19 18 Rate Blood Pressure 133/72 143/71 143/71 O2 Sat by Pulse 98 96 97 Oximetry 09/15/16 09/15/16 09/15/16 04:51 05:01 05:11 Temperature Pulse Rate 96 H 94 H 99 H Respiratory 19 22 24 Rate Blood Pressure 131/74 156/97 156/97 O2 Sat by Pulse 97 97 96 Oximetry 09/15/16 09/15/16 09/15/16 05:21 05:30 05:41 Temperature Pulse Rate 91 H 89 97 H Respiratory 19 19 21 Rate Blood Pressure 156/90 162/75 129/86 O2 Sat by Pulse 97 96 97 Oximetry 09/15/16 09/15/16 09/15/16 05:51 06:01 06:11 Temperature Pulse Rate 96 H 97 H 95 H Respiratory 18 19 16 Rate Blood Pressure 125/83 158/94 158/94 O2 Sat by Pulse 97 99 97 Oximetry 09/15/16 09/15/16 09/15/16 06:21 06:30 06:41 Temperature Pulse Rate 89 89 91 H Respiratory 18 20 16 Rate Blood Pressure 147/94 157/94 157/94 O2 Sat by Pulse 98 98 99 Oximetry 09/15/16 09/15/16 09/15/16 06:50 07:00 07:11 Temperature Pulse Rate 92 H 91 H 89 Respiratory 16 17 19 Rate Blood Pressure 136/88 147/93 147/93 O2 Sat by Pulse 98 98 98 Oximetry 09/15/16 09/15/16 09/15/16 07:21 07:31 07:41 Temperature Pulse Rate 89 105 H 102 H Respiratory 19 21 14 Rate Blood Pressure 147/93 123/73 123/73 O2 Sat by Pulse 98 97 98 Oximetry 09/15/16 09/15/16 09/15/16 07:51 08:00 08:01 Temperature 98.5 F Pulse Rate 97 H 94 H Respiratory 15 13 Rate Blood Pressure 123/73 123/73 O2 Sat by Pulse 97 99 Oximetry 09/15/16 09/15/16 09/15/16 08:11 08:21 08:30 Temperature Pulse Rate 103 H 94 H 90 Respiratory 16 22 15 Rate Blood Pressure 123/73 143/72 133/79 O2 Sat by Pulse 98 98 99 Oximetry 09/15/16 09/15/16 09/15/16 08:41 08:51 09:00 Temperature Pulse Rate 92 H 91 H 93 H Respiratory 21 20 19 Rate Blood Pressure 133/79 133/79 141/90 O2 Sat by Pulse 97 98 97 Oximetry 09/15/16 09/15/16 09/15/16 09:11 09:21 09:31 Temperature Pulse Rate 89 107 H 93 H Respiratory 20 24 19 Rate Blood Pressure 141/90 141/90 141/90 O2 Sat by Pulse 98 100 98 Oximetry 09/15/16 09/15/16 09/15/16 09:41 09:51 10:01 Temperature Pulse Rate 88 88 95 H Respiratory 26 H 17 18 Rate Blood Pressure 141/90 141/90 141/90 O2 Sat by Pulse 99 99 98 Oximetry 09/15/16 09/15/16 09/15/16 10:11 10:21 10:30 Temperature Pulse Rate 96 H 94 H 94 H Respiratory 20 19 20 Rate Blood Pressure 124/76 124/76 120/73 O2 Sat by Pulse 99 98 99 Oximetry 09/15/16 09/15/16 09/15/16 10:41 10:51 11:00 Temperature Pulse Rate 92 H 90 91 H Respiratory 19 20 21 Rate Blood Pressure 120/73 120/73 119/70 O2 Sat by Pulse 99 98 100 Oximetry 09/15/16 09/15/16 09/15/16 11:11 11:21 11:31 Temperature Pulse Rate 98 H 99 H 96 H Respiratory 17 18 19 Rate Blood Pressure 119/70 119/70 119/70 O2 Sat by Pulse 98 98 Oximetry 09/15/16 09/15/16 09/15/16 11:41 11:51 12:00 Temperature 98.4 F Pulse Rate 122 H 102 H Respiratory 20 21 Rate Blood Pressure 119/70 119/70 O2 Sat by Pulse 98 100 Oximetry 09/15/16 09/15/16 09/15/16 12:01 12:11 12:21 Temperature Pulse Rate 94 H 100 H 93 H Respiratory 21 20 20 Rate Blood Pressure 120/78 120/78 120/78 O2 Sat by Pulse 99 100 99 Oximetry 09/15/16 09/15/16 09/15/16 12:31 12:41 12:51 Temperature Pulse Rate 101 H 96 H 103 H Respiratory 22 20 21 Rate Blood Pressure 120/78 120/78 120/78 O2 Sat by Pulse 98 100 100 Oximetry 09/15/16 13:00 Temperature Pulse Rate 99 H Respiratory 22 Rate Blood Pressure 113/71 O2 Sat by Pulse 99 Oximetry Constitutional: no acute distress Eyes: non-icteric ENT: oropharynx moist Neck: supple Effort: normal Ascultation: Bilateral: clear Cardiovascular: regular rate and rhythm Gastrointestinal: normoactive bowel sounds, soft, non-tender, non-distended Integumentary: normal Extremities: no cyanosis, no edema, pink and warm, pulses normal Neurologic: normal mental status, non-focal exam, pupils equal and round, motor strength normal and Psychiatric: mood appropriate, affect normal CBC and BMP: 09/16/16 05:00 09/16/16 05:00 ABG, PT/INR, D-dimer: PT/INR, D-dimer PT 13.6 Sec. (12.2-14.9) 09/13/16 11:28 INR 1.05 (0.87-1.13) 09/13/16 11:28 Abnormal lab findings: Abnormal Labs 09/14/16 09/14/16 09/14/16 02:30 06:30 06:30 WBC MCH 27 L RDW 16.1 H [place] % (Auto) 8.2 H Lymph # 1.0 L Seg Neutrophils % 76.4 H Sodium 130 L Chloride 92.8 L Carbon Dioxide 18 L BUN 32 H Creatinine 3.7 H Glucose 147 H Calcium 8.0 L Phosphorus Total Protein 5.9 L D Albumin 3.1 L Urine WBC (Auto) 13.0 H Rheumatoid Factor 09/14/16 09/15/16 09/15/16 11:30 07:00 07:00 WBC 3.4 L MCH 27 L RDW 16.0 H [place] % (Auto) 8.9 H Lymph # 0.8 L Seg Neutrophils % Sodium 136 L Chloride Carbon Dioxide 21 L BUN 19 H Creatinine 2.3 H Glucose 137 H Calcium 8.1 L Phosphorus 2.1 L Total Protein Albumin Urine WBC (Auto) Rheumatoid Factor 889 H Chest x-ray: image reviewed
--- NOTE | 2016-09-15 13:57 | Progress Note ---
Assessment and Plan Assessment and plan: Patient remains critically ill on life supporting medications of levo fed unable to wean. Exact etiology unknown. - Patient Problems (1) Hyponatremia Current Visit: Yes Status: Acute Plan to address problem: Resolving improved. Secondary to antidepressive anesthesia medication. (2) Acute renal failure Current Visit: Yes Status: Acute Qualifiers: Acute renal failure type: with acute tubular necrosis Qualified Code(s): N17.0 - Acute kidney failure with tubular necrosis Plan to address problem: Exact etiology of renal failure unknown. Creatinine 3.7 and has not changed much since yesterday. Still most likely etiology ATN continue to volume loss. Patient was going to detox at the time. When she left the facility was hypotensive. Patient states she had not been eating and drinking for quite some time. Because she was going to detox. This is most likely etiology. We are where that there are other potential etiologies including chronic kidney disease with history of hypertension untreated hepatitis C. patient does have significant improvement in her renal function. So and told this appears to be secondary to profound volume loss. Has improved with rehydration. Still working up hepatitis C markers. (3) Hypotension Current Visit: Yes Status: Acute Qualifiers: Hypotension type: neurogenic orthostatic hypotension Trimester: T Qualified Code(s): G90.3 - Multi-system degeneration of the autonomic nervous system Plan to address problem: Hypotension has improved significantly with aggressive IV volume replacement. Will DC levo fed drip today. (4) Shock Current Visit: Yes Status: Acute Plan to address problem: T need to treat empirically for possible infection. No clear evidence of sepsis has been located this time. (5) Abdominal pain Current Visit: Yes Status: Resolved Qualifiers: Abdominal location: lower abdomen, unspecified Qualified Code(s): R10.30 - Lower abdominal pain, unspecified Plan to address problem: Patient had abdominal pain with some evidence of rectal bleeding. CT scan evaluated appeared to have possible thickening of bowel wall consistent with enteritis versus Crohn's disease. GI consult to assist in evaluation. Patient also has small amount of rectal bleeding is well. May eventually need colonoscopy. (6) Rectal bleeding Current Visit: Yes Status: Acute Plan to address problem: Patient rectal bleeding consistent with acute enteritis self-limited no need for further follow-up at this particular time. (7) Drug abuse Current Visit: Yes Status: Acute Plan to address problem: Patient with history of drug dependence has stabilized from detoxification.. Still anxious. I think patient will need to stay to get optimize her renal function. We'll treat with when necessary Ativan IV now. History Interval history: Patient still seems much better today. Patient very agitated. States she wants to leave. Currently weaning off of levothyroxine drip today. Once stable of leaflet drip which transferred to the floor. Patient still has significant renal failure. Just DC Levaquin for drip if possible. We'll need to stay for another 24 hours. Have agreed to treat with when necessary Ativan for anxiety. And agitation. She also refused BuSpar as well. Explained to her that that would help 2. She replied I know my body. Hospitalist Physical - Constitutional Vitals: Temp Pulse Resp BP Pulse Ox 98.4 F 99 H 22 113/71 99 09/15/16 12:00 09/15/16 13:00 09/15/16 13:00 09/15/16 13:00 09/15/16 13:00 General appearance: Present: no acute distress, well-nourished - EENT Eyes: Present: PERRL, EOM intact ENT: hearing intact, clear oral mucosa, dentition normal - Neck Neck: Present: supple, normal ROM - Respiratory Respiratory effort: normal Respiratory: bilateral: CTA - Cardiovascular Rhythm: regular Heart Sounds: Present: S1 & S2 - Extremities Extremities: no ischemia, pulses intact, pulses symmetrical, No edema, normal temperature, normal color Peripheral Pulses: within normal limits - Abdominal General gastrointestinal: soft, non-tender, non-distended - Integumentary Integumentary: Present: clear, warm, dry - Psychiatric Psychiatric: appropriate mood/affect, cooperative - Neurologic Neurologic: CNII-XII intact Results - Labs CBC & Chem 7: 09/15/16 07:00 09/15/16 07:00 Labs: Laboratory Last Values WBC 3.4 K/mm3 (4.5-11.0) L 09/15/16 07:00 RBC 3.80 M/mm3 (3.65-5.03) 09/15/16 07:00 Hgb 10.4 gm/dl (10.1-14.3) 09/15/16 07:00 Hct 31.2 % (30.3-42.9) 09/15/16 07:00 MCV 82 fl (79-97) 09/15/16 07:00 MCH 27 pg (28-32) L 09/15/16 07:00 MCHC 33 % (30-34) 09/15/16 07:00 RDW 16.0 % (13.2-15.2) H 09/15/16 07:00 Plt Count 296 K/mm3 (140-440) 09/15/16 07:00 Lymph % (Auto) 22.8 % (13.4-35.0) 09/15/16 07:00 [place] % (Auto) 8.9 % (0.0-7.3) H 09/15/16 07:00 Eos % (Auto) 1.0 % (0.0-4.3) 09/15/16 07:00 Baso % (Auto) 0.3 % (0.0-1.8) 09/15/16 07:00 Lymph # 0.8 K/mm3 (1.2-5.4) L 09/15/16 07:00 [place] # 0.3 K/mm3 (0.0-0.8) 09/15/16 07:00 Eos # 0.0 K/mm3 (0.0-0.4) 09/15/16 07:00 Baso # 0.0 K/mm3 (0.0-0.1) 09/15/16 07:00 Seg Neutrophils % 67.0 % (40.0-70.0) 09/15/16 07:00 Seg Neutrophils # 2.3 K/mm3 (1.8-7.7) 09/15/16 07:00 PT 13.6 Sec. (12.2-14.9) 09/13/16 11:28 INR 1.05 (0.87-1.13) 09/13/16 11:28 APTT 29.3 Sec. (24.2-36.6) 09/13/16 11:28 Sodium 136 mmol/L (137-145) L 09/15/16 07:00 Potassium 4.4 mmol/L (3.6-5.0) 09/15/16 07:00 Chloride 101.3 mmol/L (98-107) 09/15/16 07:00 Carbon Dioxide 21 mmol/L (22-30) L 09/15/16 07:00 Anion Gap 18 mmol/L 09/15/16 07:00 BUN 19 mg/dL (7-17) H 09/15/16 07:00 Creatinine 2.3 mg/dL (0.7-1.2) H 09/15/16 07:00 Estimated GFR 22 ml/min 09/15/16 07:00 BUN/Creatinine Ratio 8.26 % 09/15/16 07:00 Glucose 137 mg/dL (65-100) H 09/15/16 07:00 Calcium 8.1 mg/dL (8.4-10.2) L 09/15/16 07:00 Phosphorus 2.1 mg/dL (2.5-4.5) L 09/15/16 07:00 Total Bilirubin 0.6 mg/dL (0.1-1.2) 09/14/16 06:30 AST 19 units/L (5-40) 09/14/16 06:30 ALT 12 units/L (7-56) 09/14/16 06:30 Alkaline Phosphatase 96 units/L (35-129) 09/14/16 06:30 Total Creatine Kinase 72 units/L (30-135) 09/13/16 11:28 CK-MB (CK-2) 3.6 ng/mL (0.0-4.0) 09/13/16 11:28 CK-MB (CK-2) Rel Index 5.0 (0-4) H 09/13/16 11:28 Troponin T < 0.010 ng/mL (0.00-0.029) 09/13/16 11:28 Total Protein 5.9 g/dL (6.3-8.2) L D 09/14/16 06:30 Albumin 3.1 g/dL (3.9-5) L 09/14/16 06:30 Albumin/Globulin Ratio 1.1 % 09/14/16 06:30 Lipase 217 units/L (13-60) H 09/13/16 11:28 Urine Color Yellow (Yellow) 09/14/16 02:30 Urine Turbidity Slightly-cloudy (Clear) 09/14/16 02:30 Urine pH 5.0 (5.0-7.0) 09/14/16 02:30 Ur Specific [place] 1.009 (1.003-1.030) 09/14/16 02:30 Urine Protein 30 mg/dl mg/dL (Negative) 09/14/16 02:30 Urine Glucose (UA) 50 mg/dL (Negative) 09/14/16 02:30 Urine Ketones Neg mg/dL (Negative) 09/14/16 02:30 Urine Blood Lg (Negative) 09/14/16 02:30 Urine Nitrite Neg (Negative) 09/14/16 02:30 Urine Bilirubin Neg (Negative) 09/14/16 02:30 Urine Urobilinogen < 2.0 mg/dL (<2.0) 09/14/16 02:30 Ur Leukocyte Esterase Tr (Negative) 09/14/16 02:30 Urine WBC (Auto) 13.0 /HPF (0.0-6.0) H 09/14/16 02:30 Urine RBC (Auto) 41.0 /HPF (0.0-6.0) 09/14/16 02:30 U Epithel Cells (Auto) < 1.0 /HPF (0-13.0) 09/14/16 02:30 Urine Bacteria (Auto) 1+ /HPF (Negative) 09/14/16 02:30 Urine Mucus Few /HPF 09/14/16 02:30 Urine Eosinophils None seen (None Seen) 09/14/16 11:30 Rheumatoid Factor 889 IU/ml (0-13) H 09/14/16 11:30 Blood Type O POSITIVE 09/13/16 11:36 Antibody Screen Negative 09/13/16 11:36
[2016-09-15] MEDS: ATIVAN IV PRN (14:20)
--- NOTE | 2016-09-15 15:38 | Progress Note ---
Assessment and Plan pt just medicated with ativan no heme renal mass R/O RCC to discuss with pt and pcp recently detoxed Subjective Date of service: 09/15/16 Principal diagnosis: acute renal failure renal mass Objective - Constitutional Vitals: Vital Signs - 12hr 09/15/16 09/15/16 09/15/16 03:41 03:51 04:00 Temperature 98.5 F Pulse Rate 97 H 98 H 96 H Respiratory 16 19 21 Rate Blood Pressure 153/78 125/92 143/70 O2 Sat by Pulse 98 98 97 Oximetry 09/15/16 09/15/16 09/15/16 04:11 04:21 04:30 Temperature Pulse Rate 98 H 99 H 98 H Respiratory 18 18 19 Rate Blood Pressure 143/70 133/72 143/71 O2 Sat by Pulse 97 98 96 Oximetry 09/15/16 09/15/16 09/15/16 04:41 04:51 05:01 Temperature Pulse Rate 98 H 96 H 94 H Respiratory 18 19 22 Rate Blood Pressure 143/71 131/74 156/97 O2 Sat by Pulse 97 97 97 Oximetry 09/15/16 09/15/16 09/15/16 05:11 05:21 05:30 Temperature Pulse Rate 99 H 91 H 89 Respiratory 24 19 19 Rate Blood Pressure 156/97 156/90 162/75 O2 Sat by Pulse 96 97 96 Oximetry 09/15/16 09/15/16 09/15/16 05:41 05:51 06:01 Temperature Pulse Rate 97 H 96 H 97 H Respiratory 21 18 19 Rate Blood Pressure 129/86 125/83 158/94 O2 Sat by Pulse 97 97 99 Oximetry 09/15/16 09/15/16 09/15/16 06:11 06:21 06:30 Temperature Pulse Rate 95 H 89 89 Respiratory 16 18 20 Rate Blood Pressure 158/94 147/94 157/94 O2 Sat by Pulse 97 98 98 Oximetry 09/15/16 09/15/16 09/15/16 06:41 06:50 07:00 Temperature Pulse Rate 91 H 92 H 91 H Respiratory 16 16 17 Rate Blood Pressure 157/94 136/88 147/93 O2 Sat by Pulse 99 98 98 Oximetry 09/15/16 09/15/16 09/15/16 07:11 07:21 07:31 Temperature Pulse Rate 89 89 105 H Respiratory 19 19 21 Rate Blood Pressure 147/93 147/93 123/73 O2 Sat by Pulse 98 98 97 Oximetry 09/15/16 09/15/16 09/15/16 07:41 07:51 08:00 Temperature 98.5 F Pulse Rate 102 H 97 H Respiratory 14 15 Rate Blood Pressure 123/73 123/73 O2 Sat by Pulse 98 97 Oximetry 09/15/16 09/15/16 09/15/16 08:01 08:11 08:21 Temperature Pulse Rate 94 H 103 H 94 H Respiratory 13 16 22 Rate Blood Pressure 123/73 123/73 143/72 O2 Sat by Pulse 99 98 98 Oximetry 09/15/16 09/15/16 09/15/16 08:30 08:41 08:51 Temperature Pulse Rate 90 92 H 91 H Respiratory 15 21 20 Rate Blood Pressure 133/79 133/79 133/79 O2 Sat by Pulse 99 97 98 Oximetry 09/15/16 09/15/16 09/15/16 09:00 09:11 09:21 Temperature Pulse Rate 93 H 89 107 H Respiratory 19 20 24 Rate Blood Pressure 141/90 141/90 141/90 O2 Sat by Pulse 97 98 100 Oximetry 09/15/16 09/15/16 09/15/16 09:31 09:41 09:51 Temperature Pulse Rate 93 H 88 88 Respiratory 19 26 H 17 Rate Blood Pressure 141/90 141/90 141/90 O2 Sat by Pulse 98 99 99 Oximetry 09/15/16 09/15/16 09/15/16 10:01 10:11 10:21 Temperature Pulse Rate 95 H 96 H 94 H Respiratory 18 20 19 Rate Blood Pressure 141/90 124/76 124/76 O2 Sat by Pulse 98 99 98 Oximetry 09/15/16 09/15/16 09/15/16 10:30 10:41 10:51 Temperature Pulse Rate 94 H 92 H 90 Respiratory 20 19 20 Rate Blood Pressure 120/73 120/73 120/73 O2 Sat by Pulse 99 99 98 Oximetry 09/15/16 09/15/16 09/15/16 11:00 11:11 11:21 Temperature Pulse Rate 91 H 98 H 99 H Respiratory 21 17 18 Rate Blood Pressure 119/70 119/70 119/70 O2 Sat by Pulse 100 98 Oximetry 09/15/16 09/15/16 09/15/16 11:31 11:41 11:51 Temperature Pulse Rate 96 H 122 H 102 H Respiratory 19 20 21 Rate Blood Pressure 119/70 119/70 119/70 O2 Sat by Pulse 98 98 100 Oximetry 09/15/16 09/15/16 09/15/16 12:00 12:01 12:11 Temperature 98.4 F Pulse Rate 94 H 100 H Respiratory 21 20 Rate Blood Pressure 120/78 120/78 O2 Sat by Pulse 99 100 Oximetry 09/15/16 09/15/16 09/15/16 12:21 12:31 12:41 Temperature Pulse Rate 93 H 101 H 96 H Respiratory 20 22 20 Rate Blood Pressure 120/78 120/78 120/78 O2 Sat by Pulse 99 98 100 Oximetry 09/15/16 09/15/16 09/15/16 12:51 13:00 13:11 Temperature Pulse Rate 103 H 99 H 97 H Respiratory 21 22 20 Rate Blood Pressure 120/78 113/71 113/71 O2 Sat by Pulse 100 99 100 Oximetry 09/15/16 09/15/16 09/15/16 13:21 13:31 13:41 Temperature Pulse Rate 104 H 100 H 105 H Respiratory 22 24 20 Rate Blood Pressure 113/71 113/71 113/71 O2 Sat by Pulse 100 99 99 Oximetry 09/15/16 09/15/16 09/15/16 13:51 14:00 14:11 Temperature Pulse Rate 108 H 107 H 103 H Respiratory 14 22 27 H Rate Blood Pressure 113/71 103/72 103/72 O2 Sat by Pulse 100 98 98 Oximetry 09/15/16 09/15/16 09/15/16 14:21 14:31 14:41 Temperature Pulse Rate 99 H 99 H 101 H Respiratory 22 23 22 Rate Blood Pressure 103/72 103/72 103/72 O2 Sat by Pulse 96 97 98 Oximetry 09/15/16 09/15/16 14:51 15:00 Temperature Pulse Rate 100 H 99 H Respiratory 23 23 Rate Blood Pressure 103/72 101/59 O2 Sat by Pulse 97 98 Oximetry General appearance: Present: no acute distress, disheveled - Respiratory Respiratory effort: normal Extremities: no ischemia - Gastrointestinal General gastrointestinal: Present: soft, non-tender - Labs CBC & Chem 7: 09/15/16 07:00 09/15/16 07:00 Labs: Abnormal lab results 09/15/16 09/15/16 Range/Units 07:00 07:00 WBC 3.4 L (4.5-11.0) K/mm3 MCH 27 L (28-32) pg RDW 16.0 H (13.2-15.2) % [place] % (Auto) 8.9 H (0.0-7.3) % Lymph # 0.8 L (1.2-5.4) K/mm3 Sodium 136 L (137-145) mmol/L Carbon Dioxide 21 L (22-30) mmol/L BUN 19 H (7-17) mg/dL Creatinine 2.3 H (0.7-1.2) mg/dL Glucose 137 H (65-100) mg/dL Calcium 8.1 L (8.4-10.2) mg/dL Phosphorus 2.1 L (2.5-4.5) mg/dL
[2016-09-15] MEDS: CLEOCIN PO SCH ×2 (17:02→20:01)
--- NOTE | 2016-09-15 17:39 | Progress Note ---
Assessment and Plan 1. N/V/abd pain - resolved. Low BP likely due to being off opiates x 12 days, and out of Detox on 09/12. Likely has acute enteritis, self-limited. - doing well. - outpatient colonoscopy - outpatient eval of HCV Will sign off. Subjective Date of service: 09/15/16 Principal diagnosis: acute renal failure renal mass Interval history: Doing well with no N/V. Off pressors now. Objective - Constitutional Vitals: Vital Signs - 12hr 09/15/16 09/15/16 09/15/16 05:41 05:51 06:01 Temperature Pulse Rate 97 H 96 H 97 H Respiratory 21 18 19 Rate Blood Pressure 129/86 125/83 158/94 O2 Sat by Pulse 97 97 99 Oximetry 09/15/16 09/15/16 09/15/16 06:11 06:21 06:30 Temperature Pulse Rate 95 H 89 89 Respiratory 16 18 20 Rate Blood Pressure 158/94 147/94 157/94 O2 Sat by Pulse 97 98 98 Oximetry 09/15/16 09/15/16 09/15/16 06:41 06:50 07:00 Temperature Pulse Rate 91 H 92 H 91 H Respiratory 16 16 17 Rate Blood Pressure 157/94 136/88 147/93 O2 Sat by Pulse 99 98 98 Oximetry 09/15/16 09/15/16 09/15/16 07:11 07:21 07:31 Temperature Pulse Rate 89 89 105 H Respiratory 19 19 21 Rate Blood Pressure 147/93 147/93 123/73 O2 Sat by Pulse 98 98 97 Oximetry 09/15/16 09/15/16 09/15/16 07:41 07:51 08:00 Temperature 98.5 F Pulse Rate 102 H 97 H Respiratory 14 15 Rate Blood Pressure 123/73 123/73 O2 Sat by Pulse 98 97 Oximetry 09/15/16 09/15/16 09/15/16 08:01 08:11 08:21 Temperature Pulse Rate 94 H 103 H 94 H Respiratory 13 16 22 Rate Blood Pressure 123/73 123/73 143/72 O2 Sat by Pulse 99 98 98 Oximetry 09/15/16 09/15/16 09/15/16 08:30 08:41 08:51 Temperature Pulse Rate 90 92 H 91 H Respiratory 15 21 20 Rate Blood Pressure 133/79 133/79 133/79 O2 Sat by Pulse 99 97 98 Oximetry 09/15/16 09/15/16 09/15/16 09:00 09:11 09:21 Temperature Pulse Rate 93 H 89 107 H Respiratory 19 20 24 Rate Blood Pressure 141/90 141/90 141/90 O2 Sat by Pulse 97 98 100 Oximetry 09/15/16 09/15/16 09/15/16 09:31 09:41 09:51 Temperature Pulse Rate 93 H 88 88 Respiratory 19 26 H 17 Rate Blood Pressure 141/90 141/90 141/90 O2 Sat by Pulse 98 99 99 Oximetry 09/15/16 09/15/16 09/15/16 10:01 10:11 10:21 Temperature Pulse Rate 95 H 96 H 94 H Respiratory 18 20 19 Rate Blood Pressure 141/90 124/76 124/76 O2 Sat by Pulse 98 99 98 Oximetry 09/15/16 09/15/16 09/15/16 10:30 10:41 10:51 Temperature Pulse Rate 94 H 92 H 90 Respiratory 20 19 20 Rate Blood Pressure 120/73 120/73 120/73 O2 Sat by Pulse 99 99 98 Oximetry 09/15/16 09/15/16 09/15/16 11:00 11:11 11:21 Temperature Pulse Rate 91 H 98 H 99 H Respiratory 21 17 18 Rate Blood Pressure 119/70 119/70 119/70 O2 Sat by Pulse 100 98 Oximetry 09/15/16 09/15/16 09/15/16 11:31 11:41 11:51 Temperature Pulse Rate 96 H 122 H 102 H Respiratory 19 20 21 Rate Blood Pressure 119/70 119/70 119/70 O2 Sat by Pulse 98 98 100 Oximetry 09/15/16 09/15/16 09/15/16 12:00 12:01 12:11 Temperature 98.4 F Pulse Rate 94 H 100 H Respiratory 21 20 Rate Blood Pressure 120/78 120/78 O2 Sat by Pulse 99 100 Oximetry 09/15/16 09/15/16 09/15/16 12:21 12:31 12:41 Temperature Pulse Rate 93 H 101 H 96 H Respiratory 20 22 20 Rate Blood Pressure 120/78 120/78 120/78 O2 Sat by Pulse 99 98 100 Oximetry 09/15/16 09/15/16 09/15/16 12:51 13:00 13:11 Temperature Pulse Rate 103 H 99 H 97 H Respiratory 21 22 20 Rate Blood Pressure 120/78 113/71 113/71 O2 Sat by Pulse 100 99 100 Oximetry 09/15/16 09/15/16 09/15/16 13:21 13:31 13:41 Temperature Pulse Rate 104 H 100 H 105 H Respiratory 22 24 20 Rate Blood Pressure 113/71 113/71 113/71 O2 Sat by Pulse 100 99 99 Oximetry 09/15/16 09/15/16 09/15/16 13:51 14:00 14:11 Temperature Pulse Rate 108 H 107 H 103 H Respiratory 14 22 27 H Rate Blood Pressure 113/71 103/72 103/72 O2 Sat by Pulse 100 98 98 Oximetry 09/15/16 09/15/16 09/15/16 14:21 14:31 14:41 Temperature Pulse Rate 99 H 99 H 101 H Respiratory 22 23 22 Rate Blood Pressure 103/72 103/72 103/72 O2 Sat by Pulse 96 97 98 Oximetry 09/15/16 09/15/16 09/15/16 14:51 15:00 16:00 Temperature 98.7 F Pulse Rate 100 H 99 H Respiratory 23 23 Rate Blood Pressure 103/72 101/59 O2 Sat by Pulse 97 98 Oximetry General appearance: Present: no acute distress - EENT Eyes: PERRL, EOM intact ENT: hearing intact - Respiratory Respiratory effort: normal - Gastrointestinal General gastrointestinal: Present: soft, non-tender - Labs CBC & Chem 7: 09/15/16 07:00 09/15/16 07:00 Labs: Abnormal lab results 09/15/16 09/15/16 Range/Units 07:00 07:00 WBC 3.4 L (4.5-11.0) K/mm3 MCH 27 L (28-32) pg RDW 16.0 H (13.2-15.2) % [place] % (Auto) 8.9 H (0.0-7.3) % Lymph # 0.8 L (1.2-5.4) K/mm3 Sodium 136 L (137-145) mmol/L Carbon Dioxide 21 L (22-30) mmol/L BUN 19 H (7-17) mg/dL Creatinine 2.3 H (0.7-1.2) mg/dL Glucose 137 H (65-100) mg/dL Calcium 8.1 L (8.4-10.2) mg/dL Phosphorus 2.1 L (2.5-4.5) mg/dL
--- NOTE | 2016-09-15 23:39 | Consultation ---
HISTORY OF PRESENT ILLNESS: The patient is a 50-year-old woman who was admitted for detoxification and hypotension. She has evidence of a renal mass. She also has chronic renal insufficiency with creatinine between . She is somewhat lethargic. She was medicated with Ativan for withdrawal. PAST MEDICAL HISTORY: She denies any symptoms or history. No hematuria. She has a history of opioid abuse. ALLERGIES: Aspirin and Keflex. MEDICATIONS: She has been on BuSpar, Desyrel, Neurontin, Bactrim, lisinopril. SOCIAL HISTORY: Smoker, drug abuser, alcohol abuser. REVIEW OF SYSTEMS: Really unobtainable. She is very lethargic after the Ativan. PHYSICAL EXAMINATION: ABDOMEN: Soft, nondistended. There is no guarding. PELVIC: Not done. She is too lethargic to really cooperate. IMPRESSION: Left renal mass. We will see if we can get an MRI. The CT scan shows a fullness in the left kidney. We cannot give her contrast. Her creatinine is anywhere between 2.3 and 3.3, so we will try to get an MRI tonight or tomorrow. JOB# [id number] NATALY/AMISH
--- NOTE | 2016-09-16 00:22 | Consultation ---
REQUESTING PHYSICIAN: REASON FOR CONSULTATION: Hypotension, sepsis syndrome. CHIEF COMPLAINT AND HISTORY OF PRESENT ILLNESS: The patient is a 50-year-old female with past medical history significant only for a diagnosis of chronic pain, who came into the Emergency Room on the day of presentation secondary to severe weakness and lethargy at home. Her blood pressure was checked at home and she was found to have a blood pressure of 58/42. She was brought into the Emergency Room. She reports that she has had some trouble with a little bit of blood in her stool. She has been taking antihypertensive medications prior to admission. She had had episodes of nausea and vomiting and had not been eating much. In the emergency room, she was found indeed to be hypotensive and required vasopressors support, hence the ICU admission. When I stopped by to see her, she stated that she was feeling a little bit better. She denied any chest pains or palpitations. She denied fevers or chills. She has not had this kind of presentation before. She denied any melena or any gross blood loss. That really is as much of the history of presentation as I have. PAST MEDICAL HISTORY: History of hepatitis C, history of vasculitis, and history of chronic pain. PAST SURGICAL HISTORY: She has had surgery to her left hand. MEDICATIONS: She was on at the time I stopped by to see her, according to the medication administration record, included the following: She had been on Tylenol 650 mg p.o. q.4h. p.r.n. mild pain, BuSpar 10 mg p.o. b.i.d., Cleocin 300 mg p.o. t.i.d., Neurontin 300 mg p.o. t.i.d., Ativan 2 mg IV q.4h. p.r.n. seizures, Levophed drip was going at 16 mcg per minute, Zofran 4 mg IV q.8h. and p.r.n., Percocet 5/325 q.6h. p.r.n. She had just been started on a bicarbonate drip, D5W with 1.5 amps of bicarbonate at 75 mL per hour. ALLERGIES: To aspirin and to cephalexin, nature of this allergy is unknown. DIET: Well-built lady, acute weight loss or gain history she denies. FAMILY AND SOCIAL HISTORY: Lives in the community. She has a 10+ pack year tobacco smoking history. Denied illicit drug use or alcohol use or abuse. REVIEW OF SYSTEMS: No overt loss of consciousness. No new onset seizures. No new onset focal weakness. Denies gross hematochezia. She did notice some blood on her wipes. Denied melena. No hematemesis. No hemoptysis. No palpitations. Complete review of systems obtained. Pertinent positives and/or negatives as in body of history above, otherwise they are noncontributory. Complete review of systems obtained. Pertinent positives and/or negatives as in body of history above, otherwise they are noncontributory. PHYSICAL EXAMINATION: VITAL SIGNS: At presentation in the Emergency Room, vital signs shows that she was afebrile, temperature 97.1, pulse 111, respiratory rate was 20, blood pressure 74/30, oxygen sats 97%, inspired oxygen concentration was not recorded. HEAD, EYES, EARS, NOSE, AND THROAT: Pupils are equal, round, reactive to light. Extraocular muscles movements are intact. Pupils are 3-4 mm. No overt scleral icterus. Grossly, no palpable lymph nodes in the supraclavicular or submandibular lymph node chains. LUNGS: Auscultation of both lung cunningham are unremarkable. Lungs are clear to auscultation and percussion bilaterally. HEART: Heart sounds 1 and 2 are heard. There were regular rate and rhythm at the time of my evaluation. ABDOMEN: Soft, full, bowel sounds are positive, nontender. EXTREMITIES: Without overt digital clubbing, cyanosis, or pedal edema. NEUROLOGIC: The exam was grossly nonfocal. LABORATORY DATA: From my review are as follows: White cell count 12,000, hemoglobin 12.0, hematocrit 37.3, and platelets are 430. INR 1.05. Serum sodium 131, potassium 4.7, chloride 91, bicarbonate 18, BUN was 33, creatinine was 3.7, glucose 125. Total bilirubin within normal limits. Troponin within normal limits. Albumin 3.6, lipase 217. Urinalysis negative for nitrites, trace leukocyte esterase, 13 white cells per high power field. Rheumatoid factor was elevated at 189. Blood cultures, no growth to date. CT of the abdomen and pelvis was done on shows an abnormal left kidney with some calcifications, mildly dilated common bile duct and circumferential thickening of the ileum, suspicious for enteritis or Crohn's disease. No acute abdomen, otherwise. ASSESSMENT AND PLAN: We have a middle-aged lady in with hypotension. I do feel that there is an element of intravascular volume depletion also at play here. She is responding to volume boluses at this point in time. Respiratory nunez, she is doing fine. Cardiac nunez, we are weaning her off the vasopressors. We will continue volume resuscitation. At this time, we will in light of acidosis. Vasopressor will be weaned to keep mean arterial pressures greater than or equal to about 60-65 mmHg. She will be n.p.o. until cleared by GI. Aspiration precautions are being maintained. She will be placed on GI prophylaxis as well as DVT prophylaxis. Flu and pneumonia vaccination will be per protocol. Thank you very much for the consult. We will follow along and make further recommendations as picture progresses/becomes clearer. JOB# [id number] DONNA/AMISH
[2016-09-16 07:07] LABS: Hemoglobin 9.3 gm/dl (10.1-14.3); Mean Corpuscular HGB Conc 33 % (30-34); Mean Corpuscular Hemoglobin 27 pg (28-32); Mean Corpuscular Volume 82 fl (79-97); Platelet Count 235 K/mm3 (140-440); Red Blood Count 3.42 M/mm3 (3.65-5.03); Red Cell Distribution Width 15.6 % (13.2-15.2)
[2016-09-16 07:14] LABS: White Blood Count 2.2 K/mm3 (4.5-11.0)
[2016-09-16 07:25] LABS: BUN/Creatinine Ratio 9.33; Chloride 94.2 mmol/L (98-107); Phosphorous 2.3 mg/dL (2.5-4.5)
[2016-09-16 08:12] LABS: Eosinophils % (Auto) 2.6 % (0.0-4.3)
[2016-09-16 08:53] VITALS: BP 141/85
[2016-09-16 09:18] LABS: Basophils % (Manual) 0 % (0.0-1.8); Blastocytes % (Manual) 0 %
[2016-09-16 09:20] LABS: Anisocytosis 1+; Diff Status Complete; Schistocytes Rare
[2016-09-16] MEDS: BUSPAR PO SCH (09:28)
[2016-09-16] MEDS: NEURONTIN PO SCH (09:29)
[2016-09-16] MEDS: CLEOCIN PO SCH (09:29)
[2016-09-16] MEDS: ZOFRAN IV PRN (09:52)
--- NOTE | 2016-09-16 10:37 | Progress Note ---
Assessment and Plan (1) Sepsis syndrome Current Visit: Yes Status: Acute Plan to address problem: - cultures NGTD - off vasopressors - acidosis corrected - likely related to IVVD - follow off AB's - discontinue femoral CVL (2) Acute renal failure Current Visit: Yes Status: Acute Qualifiers: Acute renal failure type: with acute tubular necrosis Qualified Code(s): N17.0 - Acute kidney failure with tubular necrosis Plan to address problem: - improving - nephrology on case - IVVD /? ATN component - follow I's & O's (3) Hypotension Current Visit: Yes Status: Acute Qualifiers: Hypotension type: neurogenic orthostatic hypotension Trimester: T Qualified Code(s): G90.3 - Multi-system degeneration of the autonomic nervous system Plan to address problem: - see sepsis above (4) Discharge planning issues Current Visit: Yes Status: Acute Plan to address problem: - transfer to medical floor pending Subjective Date of service: 09/16/16 Principal diagnosis: Sepsis; Hypotension Interval history: seen and examined at bedside; 24hour events reviewed; nursing and respiratory care staff consulted; no adverse overnight events reported to me; awaiting transfer; No N/V/F/C Objective Vital Signs - 12hr 09/15/16 09/15/16 09/15/16 22:40 22:50 23:00 Temperature Pulse Rate 93 H 97 H 98 H Respiratory 25 H 23 23 Rate Blood Pressure 131/82 131/82 124/71 O2 Sat by Pulse 97 97 97 Oximetry 09/15/16 09/15/16 09/15/16 23:10 23:12 23:18 Temperature 98.2 F Pulse Rate 96 H 99 H Respiratory 23 23 Rate Blood Pressure 124/71 124/71 O2 Sat by Pulse 97 97 Oximetry 09/15/16 09/15/16 09/15/16 23:20 23:30 23:40 Temperature Pulse Rate 98 H 107 H 94 H Respiratory 23 24 23 Rate Blood Pressure 124/71 124/71 124/71 O2 Sat by Pulse 97 97 97 Oximetry 09/15/16 09/16/16 09/16/16 23:50 00:00 00:10 Temperature Pulse Rate 110 H 95 H 93 H Respiratory 21 22 22 Rate Blood Pressure 124/71 132/84 132/84 O2 Sat by Pulse 96 99 98 Oximetry 09/16/16 09/16/16 09/16/16 00:20 00:30 00:40 Temperature Pulse Rate 94 H 93 H 92 H Respiratory 24 23 22 Rate Blood Pressure 124/71 124/71 124/71 O2 Sat by Pulse 96 98 97 Oximetry 09/16/16 09/16/16 09/16/16 00:50 01:00 01:10 Temperature Pulse Rate 94 H 91 H 92 H Respiratory 24 23 22 Rate Blood Pressure 124/71 123/67 123/67 O2 Sat by Pulse 97 96 96 Oximetry 09/16/16 09/16/16 09/16/16 01:20 01:30 01:40 Temperature Pulse Rate 102 H 94 H 92 H Respiratory 22 22 19 Rate Blood Pressure 123/67 123/67 123/67 O2 Sat by Pulse 97 94 98 Oximetry 09/16/16 09/16/16 09/16/16 01:50 02:00 02:07 Temperature Pulse Rate 93 H 95 H Respiratory 22 16 21 Rate Blood Pressure 123/67 139/79 O2 Sat by Pulse 96 97 Oximetry 09/16/16 09/16/16 09/16/16 02:10 02:20 02:30 Temperature Pulse Rate 89 95 H 95 H Respiratory 22 23 22 Rate Blood Pressure 139/79 139/79 139/79 O2 Sat by Pulse 97 96 96 Oximetry 09/16/16 09/16/16 09/16/16 02:40 02:50 03:00 Temperature Pulse Rate 94 H 95 H 94 H Respiratory 24 27 H 23 Rate Blood Pressure 139/79 139/79 132/81 O2 Sat by Pulse 96 96 96 Oximetry 09/16/16 09/16/16 09/16/16 03:10 03:20 03:30 Temperature Pulse Rate 94 H 94 H 92 H Respiratory 22 21 21 Rate Blood Pressure 132/81 132/81 132/81 O2 Sat by Pulse 96 96 96 Oximetry 09/16/16 09/16/16 09/16/16 03:40 03:50 04:00 Temperature 98.4 F Pulse Rate 89 82 88 Respiratory 22 24 10 L Rate Blood Pressure 132/81 132/81 123/75 O2 Sat by Pulse 97 97 98 Oximetry 09/16/16 09/16/16 09/16/16 04:10 04:20 04:30 Temperature Pulse Rate 88 93 H 92 H Respiratory 24 22 22 Rate Blood Pressure 123/75 123/75 123/75 O2 Sat by Pulse 97 97 97 Oximetry 02/13/17 02/13/17 02/13/17 04:40 04:50 05:00 Temperature Pulse Rate 96 H 90 86 Respiratory 20 22 21 Rate Blood Pressure 123/75 123/75 141/93 O2 Sat by Pulse 98 97 99 Oximetry 09/16/16 09/16/16 09/16/16 05:10 05:20 05:30 Temperature Pulse Rate 85 87 87 Respiratory 23 22 22 Rate Blood Pressure 141/93 141/93 141/93 O2 Sat by Pulse 98 97 97 Oximetry 09/16/16 09/16/16 09/16/16 05:40 05:50 06:00 Temperature Pulse Rate 84 86 87 Respiratory 21 22 21 Rate Blood Pressure 141/93 141/93 133/79 O2 Sat by Pulse 98 98 98 Oximetry 09/16/16 09/16/16 09/16/16 06:10 06:20 06:30 Temperature Pulse Rate 86 88 86 Respiratory 21 22 19 Rate Blood Pressure 133/79 133/79 133/79 O2 Sat by Pulse 99 97 97 Oximetry 09/16/16 09/16/16 09/16/16 06:40 06:50 07:00 Temperature Pulse Rate 93 H 97 H 88 Respiratory 21 18 21 Rate Blood Pressure 133/79 133/79 132/84 O2 Sat by Pulse 98 98 100 Oximetry 09/16/16 09/16/16 09/16/16 07:10 07:20 07:30 Temperature Pulse Rate 81 87 85 Respiratory 23 22 21 Rate Blood Pressure 132/84 132/84 132/84 O2 Sat by Pulse 97 97 94 Oximetry 09/16/16 09/16/16 09/16/16 07:40 07:50 08:00 Temperature 98 F Pulse Rate 86 86 85 Respiratory 23 24 21 Rate Blood Pressure 132/84 132/84 141/85 O2 Sat by Pulse 99 99 96 Oximetry 09/16/16 09/16/16 09/16/16 08:10 08:20 08:30 Temperature Pulse Rate 96 H 90 97 H Respiratory 18 25 H 18 Rate Blood Pressure 141/85 141/85 141/85 O2 Sat by Pulse 98 98 98 Oximetry 09/16/16 08:40 Temperature Pulse Rate 85 Respiratory 22 Rate Blood Pressure 141/85 O2 Sat by Pulse 97 Oximetry Constitutional: no acute distress Eyes: non-icteric ENT: oropharynx moist Neck: supple Effort: normal Ascultation: Bilateral: clear Cardiovascular: regular rate and rhythm Gastrointestinal: normoactive bowel sounds, soft, non-tender, non-distended Integumentary: normal Extremities: no cyanosis, no edema, pink and warm, pulses normal Neurologic: normal mental status, non-focal exam Psychiatric: mood appropriate, affect normal CBC and BMP: 09/16/16 05:00 09/16/16 05:00 ABG, PT/INR, D-dimer: PT/INR, D-dimer PT 13.6 Sec. (12.2-14.9) 09/13/16 11:28 INR 1.05 (0.87-1.13) 09/13/16 11:28 Abnormal lab findings: Abnormal Labs 09/14/16 09/14/16 09/14/16 02:30 06:30 06:30 WBC RBC Hgb Hct MCH 27 L RDW 16.1 H [place] % (Auto) 8.2 H Lymph # 1.0 L Seg Neutrophils % 76.4 H Monocytes % (Manual) Seg Neutrophils # Seg Neutrophils # Man Lymphocytes # (Manual) Sodium 130 L Chloride 92.8 L Carbon Dioxide 18 L BUN 32 H Creatinine 3.7 H Glucose 147 H Calcium 8.0 L Phosphorus Total Protein 5.9 L D Albumin 3.1 L Urine WBC (Auto) 13.0 H Rheumatoid Factor 09/14/16 09/15/16 09/15/16 11:30 07:00 07:00 WBC 3.4 L RBC Hgb Hct MCH 27 L RDW 16.0 H [place] % (Auto) 8.9 H Lymph # 0.8 L Seg Neutrophils % Monocytes % (Manual) Seg Neutrophils # Seg Neutrophils # Man Lymphocytes # (Manual) Sodium 136 L Chloride Carbon Dioxide 21 L BUN 19 H Creatinine 2.3 H Glucose 137 H Calcium 8.1 L Phosphorus 2.1 L Total Protein Albumin Urine WBC (Auto) Rheumatoid Factor 889 H 09/16/16 09/16/16 05:00 05:00 WBC 2.2 L RBC 3.42 L Hgb 9.3 L Hct 28.0 L MCH 27 L RDW 15.6 H [place] % (Auto) 10.9 H Lymph # Seg Neutrophils % Monocytes % (Manual) 8 H Seg Neutrophils # 1.1 L Seg Neutrophils # Man 1.1 L Lymphocytes # (Manual) 0.7 L Sodium 133 L Chloride 94.2 L Carbon Dioxide BUN Creatinine 1.5 H Glucose Calcium 8.0 L Phosphorus 2.3 L Total Protein Albumin Urine WBC (Auto) Rheumatoid Factor
--- NOTE | 2016-09-16 11:40 | Progress Note ---
Assessment and Plan more alert today renal mass can w/u as out pt gey mrii prior to d/c pt fully aware Subjective Date of service: 09/16/16 Principal diagnosis: Sepsis; Hypotension mass Objective - Constitutional Vitals: Vital Signs - 12hr 09/15/16 09/15/16 09/16/16 23:40 23:50 00:00 Temperature Pulse Rate 94 H 110 H 95 H Respiratory 23 21 22 Rate Blood Pressure 124/71 124/71 132/84 O2 Sat by Pulse 97 96 99 Oximetry 09/16/16 09/16/16 09/16/16 00:10 00:20 00:30 Temperature Pulse Rate 93 H 94 H 93 H Respiratory 22 24 23 Rate Blood Pressure 132/84 124/71 124/71 O2 Sat by Pulse 98 96 98 Oximetry 09/16/16 09/16/16 09/16/16 00:40 00:50 01:00 Temperature Pulse Rate 92 H 94 H 91 H Respiratory 22 24 23 Rate Blood Pressure 124/71 124/71 123/67 O2 Sat by Pulse 97 97 96 Oximetry 09/16/16 09/16/16 09/16/16 01:10 01:20 01:30 Temperature Pulse Rate 92 H 102 H 94 H Respiratory 22 22 22 Rate Blood Pressure 123/67 123/67 123/67 O2 Sat by Pulse 96 97 94 Oximetry 09/16/16 09/16/16 09/16/16 01:40 01:50 02:00 Temperature Pulse Rate 92 H 93 H 95 H Respiratory 19 22 16 Rate Blood Pressure 123/67 123/67 139/79 O2 Sat by Pulse 98 96 97 Oximetry 09/16/16 09/16/16 09/16/16 02:07 02:10 02:20 Temperature Pulse Rate 89 95 H Respiratory 21 22 23 Rate Blood Pressure 139/79 139/79 O2 Sat by Pulse 97 96 Oximetry 09/16/16 09/16/16 09/16/16 02:30 02:40 02:50 Temperature Pulse Rate 95 H 94 H 95 H Respiratory 22 24 27 H Rate Blood Pressure 139/79 139/79 139/79 O2 Sat by Pulse 96 96 96 Oximetry 09/16/16 09/16/16 09/16/16 03:00 03:10 03:20 Temperature Pulse Rate 94 H 94 H 94 H Respiratory 23 22 21 Rate Blood Pressure 132/81 132/81 132/81 O2 Sat by Pulse 96 96 96 Oximetry 09/16/16 09/16/16 09/16/16 03:30 03:40 03:50 Temperature Pulse Rate 92 H 89 82 Respiratory 21 22 24 Rate Blood Pressure 132/81 132/81 132/81 O2 Sat by Pulse 96 97 97 Oximetry 09/16/16 09/16/16 09/16/16 04:00 04:10 04:20 Temperature 98.4 F Pulse Rate 88 88 93 H Respiratory 10 L 24 22 Rate Blood Pressure 123/75 123/75 123/75 O2 Sat by Pulse 98 97 97 Oximetry 09/16/16 09/16/16 09/16/16 04:30 04:40 04:50 Temperature Pulse Rate 92 H 96 H 90 Respiratory 22 20 22 Rate Blood Pressure 123/75 123/75 123/75 O2 Sat by Pulse 97 98 97 Oximetry 09/16/16 09/16/16 09/16/16 05:00 05:10 05:20 Temperature Pulse Rate 86 85 87 Respiratory 21 23 22 Rate Blood Pressure 141/93 141/93 141/93 O2 Sat by Pulse 99 98 97 Oximetry 09/16/16 09/16/16 09/16/16 05:30 05:40 05:50 Temperature Pulse Rate 87 84 86 Respiratory 22 21 22 Rate Blood Pressure 141/93 141/93 141/93 O2 Sat by Pulse 97 98 98 Oximetry 09/16/16 09/16/16 09/16/16 06:00 06:10 06:20 Temperature Pulse Rate 87 86 88 Respiratory 21 21 22 Rate Blood Pressure 133/79 133/79 133/79 O2 Sat by Pulse 98 99 97 Oximetry 09/16/16 09/16/16 09/16/16 06:30 06:40 06:50 Temperature Pulse Rate 86 93 H 97 H Respiratory 19 21 18 Rate Blood Pressure 133/79 133/79 133/79 O2 Sat by Pulse 97 98 98 Oximetry 09/16/16 09/16/16 09/16/16 07:00 07:10 07:20 Temperature Pulse Rate 88 81 87 Respiratory 21 23 22 Rate Blood Pressure 132/84 132/84 132/84 O2 Sat by Pulse 100 97 97 Oximetry 09/16/16 09/16/16 09/16/16 07:30 07:40 07:50 Temperature Pulse Rate 85 86 86 Respiratory 21 23 24 Rate Blood Pressure 132/84 132/84 132/84 O2 Sat by Pulse 94 99 99 Oximetry 09/16/16 09/16/16 09/16/16 08:00 08:10 08:20 Temperature 98 F Pulse Rate 85 96 H 90 Respiratory 21 18 25 H Rate Blood Pressure 141/85 141/85 141/85 O2 Sat by Pulse 96 98 98 Oximetry 09/16/16 09/16/16 08:30 08:40 Temperature Pulse Rate 97 H 85 Respiratory 18 22 Rate Blood Pressure 141/85 141/85 O2 Sat by Pulse 98 97 Oximetry General appearance: Present: no acute distress - Respiratory Respiratory effort: normal - Gastrointestinal General gastrointestinal: Present: soft, non-tender - Labs CBC & Chem 7: 09/16/16 05:00 09/16/16 05:00 Labs: Abnormal lab results 09/16/16 09/16/16 Range/Units 05:00 05:00 WBC 2.2 L (4.5-11.0) K/mm3 RBC 3.42 L (3.65-5.03) M/mm3 Hgb 9.3 L (10.1-14.3) gm/dl Hct 28.0 L (30.3-42.9) % MCH 27 L (28-32) pg RDW 15.6 H (13.2-15.2) % [place] % (Auto) 10.9 H (0.0-7.3) % Monocytes % (Manual) 8 H (0.0-7.3) % Seg Neutrophils # 1.1 L (1.8-7.7) K/mm3 Seg Neutrophils # Man 1.1 L (1.8-7.7) K/mm3 Lymphocytes # (Manual) 0.7 L (1.2-5.4) K/mm3 Sodium 133 L (137-145) mmol/L Chloride 94.2 L (98-107) mmol/L Creatinine 1.5 H (0.7-1.2) mg/dL Calcium 8.0 L (8.4-10.2) mg/dL Phosphorus 2.3 L (2.5-4.5) mg/dL
[2016-09-16] MEDS: ATIVAN IV PRN (11:49)
--- NOTE | 2016-09-16 12:06 | Progress Note ---
Assessment and Plan Assessment and plan: Patient remains critically ill on life supporting medications of levo fed unable to wean. Exact etiology unknown. - Patient Problems (1) Hyponatremia Current Visit: Yes Status: Acute Plan to address problem: Resolving improved. Secondary to antidepressive anesthesia medication. Resolving sodium 133 today. We'll back off of fluids and free water. Check basic metabolic panel in a.m. (2) Acute renal failure Current Visit: Yes Status: Acute Qualifiers: Acute renal failure type: with acute tubular necrosis Qualified Code(s): N17.0 - Acute kidney failure with tubular necrosis Plan to address problem: Q renal failure most likely secondary to ATN from volume depletion. This is separate then a pain renal mass with calcifications. Possible renal cell carcinoma. MRI of area pending now urology following is well. F further recommendations with MRI results are back. (3) Hypotension Current Visit: Yes Status: Acute Qualifiers: Hypotension type: neurogenic orthostatic hypotension Trimester: T Qualified Code(s): G90.3 - Multi-system degeneration of the autonomic nervous system Plan to address problem: hypotension secondary to volume loss while patient was undergoing detoxification. Now responded extremely well to volume replacement. Creatinine is now from 3.7-1.5. Agree with nephrology recommendations. (4) Shock Current Visit: Yes Status: Acute Plan to address problem: T need to treat empirically for possible infection. No clear evidence of sepsis has been located this time. (5) Abdominal pain Current Visit: Yes Status: Resolved Qualifiers: Abdominal location: lower abdomen, unspecified Qualified Code(s): R10.30 - Lower abdominal pain, unspecified Plan to address problem: Patient had abdominal pain with some evidence of rectal bleeding. CT scan evaluated appeared to have possible thickening of bowel wall consistent with enteritis versus Crohn's disease. GI consult to assist in evaluation. Patient also has small amount of rectal bleeding is well. May eventually need colonoscopy. (6) Rectal bleeding Current Visit: Yes Status: Acute Plan to address problem: Most likely enteritis resolved appears to be self limiting. (7) Drug abuse Current Visit: Yes Status: Acute Plan to address problem: Patient with history of drug dependence has stabilized from detoxification.. Still anxious. I think patient will need to stay to get optimize her renal function. We'll treat with when necessary Ativan IV now. (8) Rheumatoid factor positive Current Visit: Yes Status: Acute Plan to address problem: She will elevation a rheumatoid factor no clear ulnar deviation no joint pain at this particular time. We'll need to workup outpatient rheumatology. Could also be secondary to drug reaction from using drugs. History Interval history: . both appears to be much more calm today. Agitation has resolved. Tolerated Ativan well. Discussed findings of renal mass with patient in detail all questions and concerns answered to patient's satisfaction and someone now is that I have so far. MRI is pending patient understands. Hospitalist Physical - Constitutional Vitals: Temp Pulse Resp BP Pulse Ox 98 F 85 22 141/85 97 09/16/16 08:00 09/16/16 08:40 09/16/16 08:40 09/16/16 08:40 09/16/16 08:40 General appearance: Present: no acute distress - EENT Eyes: Present: PERRL, EOM intact ENT: hearing intact, clear oral mucosa, dentition normal - Neck Neck: Present: normal ROM - Respiratory Respiratory effort: normal Respiratory: bilateral: CTA - Cardiovascular Rhythm: regular Heart Sounds: Present: S1 & S2. Absent: gallop, systolic murmur - Extremities Extremities: no ischemia, pulses intact, pulses symmetrical, No edema, normal temperature, normal color Extremity abnormal: other Peripheral Pulses: within normal limits (race edema) - Abdominal General gastrointestinal: soft, non-tender, non-distended, normal bowel sounds - Integumentary Integumentary: Present: clear, warm, dry - Psychiatric Psychiatric: appropriate mood/affect, agitated - Neurologic Neurologic: CNII-XII intact Results - Labs CBC & Chem 7: 09/16/16 05:00 09/16/16 05:00 Labs: Laboratory Last Values WBC 2.2 K/mm3 (4.5-11.0) L 09/16/16 05:00 RBC 3.42 M/mm3 (3.65-5.03) L 09/16/16 05:00 Hgb 9.3 gm/dl (10.1-14.3) L 09/16/16 05:00 Hct 28.0 % (30.3-42.9) L 09/16/16 05:00 MCV 82 fl (79-97) 09/16/16 05:00 MCH 27 pg (28-32) L 09/16/16 05:00 MCHC 33 % (30-34) 09/16/16 05:00 RDW 15.6 % (13.2-15.2) H 09/16/16 05:00 Plt Count 235 K/mm3 (140-440) 09/16/16 05:00 Lymph % (Auto) 22.8 % (13.4-35.0) 09/15/16 07:00 [place] % (Auto) 10.9 % (0.0-7.3) H 09/16/16 05:00 Eos % (Auto) 2.6 % (0.0-4.3) 09/16/16 05:00 Baso % (Auto) 0.3 % (0.0-1.8) 09/15/16 07:00 Lymph # 0.8 K/mm3 (1.2-5.4) L 09/15/16 07:00 [place] # 0.2 K/mm3 (0.0-0.8) 09/16/16 05:00 Eos # 0.1 K/mm3 (0.0-0.4) 09/16/16 05:00 Baso # 0.0 K/mm3 (0.0-0.1) 09/16/16 05:00 Add Manual Diff Complete 09/16/16 05:00 Total Counted 100 09/16/16 05:00 Seg Neutrophils % 50.1 % (40.0-70.0) 09/16/16 05:00 Seg Neuts % (Manual) 51.0 % (40.0-70.0) 09/16/16 05:00 Band Neutrophils % 9 % 09/16/16 05:00 Lymphocytes % (Manual) 30.0 % (13.4-35.0) 09/16/16 05:00 Reactive Lymphs % (Man) 0 % 09/16/16 05:00 Monocytes % (Manual) 8 % (0.0-7.3) H 09/16/16 05:00 Eosinophils % (Manual) 2.0 % (0.0-4.3) 09/16/16 05:00 Basophils % (Manual) 0 % (0.0-1.8) 09/16/16 05:00 Metamyelocytes % 0 % 09/16/16 05:00 Myelocytes % 0 % 09/16/16 05:00 Promyelocytes % 0 % 09/16/16 05:00 Blast Cells % 0 % 09/16/16 05:00 Nucleated RBC % Not Reportable 09/16/16 05:00 Seg Neutrophils # 1.1 K/mm3 (1.8-7.7) L 09/16/16 05:00 Seg Neutrophils # Man 1.1 K/mm3 (1.8-7.7) L 09/16/16 05:00 Band Neutrophils # 0.3 K/mm3 09/16/16 05:00 Lymphocytes # (Manual) 0.7 K/mm3 (1.2-5.4) L 09/16/16 05:00 Abs React Lymphs (Man) 0.0 K/mm3 09/16/16 05:00 Monocytes # (Manual) 0.1 K/mm3 (0.0-0.8) 09/16/16 05:00 Eosinophils # (Manual) 0.0 K/mm3 (0.0-0.4) 09/16/16 05:00 Basophils # (Manual) 0.0 K/mm3 (0.0-0.1) 09/16/16 05:00 Metamyelocytes # 0.0 K/mm3 09/16/16 05:00 Myelocytes # 0.0 K/mm3 09/16/16 05:00 Promyelocytes # 0.0 K/mm3 09/16/16 05:00 Blast Cells # 0.0 K/mm3 09/16/16 05:00 WBC Morphology Not Reportable 09/16/16 05:00 Hypersegmented Neuts Not Reportable 09/16/16 05:00 Hyposegmented Neuts Not Reportable 09/16/16 05:00 Hypogranular Neuts Not Reportable 09/16/16 05:00 Smudge Cells Not Reportable 09/16/16 05:00 Toxic Granulation Not Reportable 09/16/16 05:00 Toxic Vacuolation Not Reportable 09/16/16 05:00 Dohle Bodies Not Reportable 09/16/16 05:00 Pelger-Huet Anomaly Not Reportable 09/16/16 05:00 Karina Rods Not Reportable 09/16/16 05:00 Platelet Estimate Not Reportable 09/16/16 05:00 Clumped Platelets Not Reportable 09/16/16 05:00 Plt Clumps, EDTA Not Reportable 09/16/16 05:00 Large Platelets Not Reportable 09/16/16 05:00 Giant Platelets Not Reportable 09/16/16 05:00 Platelet Satelliting Not Reportable 09/16/16 05:00 Plt Morphology Comment Not Reportable 09/16/16 05:00 RBC Morphology Not Reportable 09/16/16 05:00 Dimorphic RBCs Not Reportable 09/16/16 05:00 Polychromasia Not Reportable 09/16/16 05:00 Hypochromasia Not Reportable 09/16/16 05:00 Poikilocytosis Not Reportable 09/16/16 05:00 Anisocytosis 1+ 09/16/16 05:00 Microcytosis Not Reportable 09/16/16 05:00 Macrocytosis Not Reportable 09/16/16 05:00 Spherocytes Not Reportable 09/16/16 05:00 Pappenheimer Bodies Not Reportable 09/16/16 05:00 Sickle Cells Not Reportable 09/16/16 05:00 Target Cells Not Reportable 09/16/16 05:00 Tear Drop Cells Not Reportable 09/16/16 05:00 Ovalocytes Not Reportable 09/16/16 05:00 Helmet Cells Not Reportable 09/16/16 05:00 [place] Bodies Not Reportable 09/16/16 05:00 Kermit Rings Not Reportable 09/16/16 05:00 [place] Cells Not Reportable 09/16/16 05:00 Bite Cells Not Reportable 09/16/16 05:00 Crenated Cell Not Reportable 09/16/16 05:00 Elliptocytes Not Reportable 09/16/16 05:00 Acanthocytes (Spur) Not Reportable 09/16/16 05:00 Rouleaux Not Reportable 09/16/16 05:00 Hemoglobin C Crystals Not Reportable 09/16/16 05:00 Schistocytes Rare 09/16/16 05:00 Malaria parasites Not Reportable 09/16/16 05:00 Uday Bodies Not Reportable 09/16/16 05:00 Hem Pathologist Commnt No 09/16/16 05:00 PT 13.6 Sec. (12.2-14.9) 09/13/16 11:28 INR 1.05 (0.87-1.13) 09/13/16 11:28 APTT 29.3 Sec. (24.2-36.6) 09/13/16 11:28 Sodium 133 mmol/L (137-145) L 09/16/16 05:00 Potassium 4.0 mmol/L (3.6-5.0) 09/16/16 05:00 Chloride 94.2 mmol/L (98-107) L 09/16/16 05:00 Carbon Dioxide 25 mmol/L (22-30) 09/16/16 05:00 Anion Gap 18 mmol/L 09/16/16 05:00 BUN 14 mg/dL (7-17) 09/16/16 05:00 Creatinine 1.5 mg/dL (0.7-1.2) H 09/16/16 05:00 Estimated GFR 37 ml/min 09/16/16 05:00 BUN/Creatinine Ratio 9.33 % 09/16/16 05:00 Glucose 86 mg/dL (65-100) 09/16/16 05:00 Calcium 8.0 mg/dL (8.4-10.2) L 09/16/16 05:00 Phosphorus 2.3 mg/dL (2.5-4.5) L 09/16/16 05:00 Total Bilirubin 0.6 mg/dL (0.1-1.2) 09/14/16 06:30 AST 19 units/L (5-40) 09/14/16 06:30 ALT 12 units/L (7-56) 09/14/16 06:30 Alkaline Phosphatase 96 units/L (35-129) 09/14/16 06:30 Total Creatine Kinase 72 units/L (30-135) 09/13/16 11:28 CK-MB (CK-2) 3.6 ng/mL (0.0-4.0) 09/13/16 11:28 CK-MB (CK-2) Rel Index 5.0 (0-4) H 09/13/16 11:28 Troponin T < 0.010 ng/mL (0.00-0.029) 09/13/16 11:28 Total Protein 5.9 g/dL (6.3-8.2) L D 09/14/16 06:30 Albumin 3.1 g/dL (3.9-5) L 09/14/16 06:30 Albumin/Globulin Ratio 1.1 % 09/14/16 06:30 Lipase 217 units/L (13-60) H 09/13/16 11:28 Urine Color Yellow (Yellow) 09/14/16 02:30 Urine Turbidity Slightly-cloudy (Clear) 09/14/16 02:30 Urine pH 5.0 (5.0-7.0) 09/14/16 02:30 Ur Specific [place] 1.009 (1.003-1.030) 09/14/16 02:30 Urine Protein 30 mg/dl mg/dL (Negative) 09/14/16 02:30 Urine Glucose (UA) 50 mg/dL (Negative) 09/14/16 02:30 Urine Ketones Neg mg/dL (Negative) 09/14/16 02:30 Urine Blood Lg (Negative) 09/14/16 02:30 Urine Nitrite Neg (Negative) 09/14/16 02:30 Urine Bilirubin Neg (Negative) 09/14/16 02:30 Urine Urobilinogen < 2.0 mg/dL (<2.0) 09/14/16 02:30 Ur Leukocyte Esterase Tr (Negative) 09/14/16 02:30 Urine WBC (Auto) 13.0 /HPF (0.0-6.0) H 09/14/16 02:30 Urine RBC (Auto) 41.0 /HPF (0.0-6.0) 09/14/16 02:30 U Epithel Cells (Auto) < 1.0 /HPF (0-13.0) 09/14/16 02:30 Urine Bacteria (Auto) 1+ /HPF (Negative) 09/14/16 02:30 Urine Mucus Few /HPF 09/14/16 02:30 Urine Eosinophils None seen (None Seen) 09/14/16 11:30 Rheumatoid Factor 889 IU/ml (0-13) H 09/14/16 11:30 Blood Type O POSITIVE 09/13/16 11:36 Antibody Screen Negative 09/13/16 11:36 - Imaging and Cardiology Chest x-ray: image reviewed CT scan - abdomen: image reviewed US - abdomen: image reviewed
--- NOTE | 2016-09-16 12:19 | Progress Note ---
Assessment and Plan 1. Severe renal failure Cr and BUN cont to improve high RF level noted, could be secondary to chronic HCV infection, complement and cryoglobulin are pending Urology are following for L kidney mass renally dose meds strict I&O daily weight 2.Hyponatremia improving fludi restriction ordered Subjective Date of service: 09/16/16 Principal diagnosis: Sepsis; Hypotension mass Interval history: no overnight events Objective - Vital Signs Vital signs: Vital Signs - 12hr 09/16/16 09/16/16 09/16/16 00:20 00:30 00:40 Temperature Pulse Rate 94 H 93 H 92 H Respiratory 24 23 22 Rate Blood Pressure 124/71 124/71 124/71 O2 Sat by Pulse 96 98 97 Oximetry 09/16/16 09/16/16 09/16/16 00:50 01:00 01:10 Temperature Pulse Rate 94 H 91 H 92 H Respiratory 24 23 22 Rate Blood Pressure 124/71 123/67 123/67 O2 Sat by Pulse 97 96 96 Oximetry 09/16/16 09/16/16 09/16/16 01:20 01:30 01:40 Temperature Pulse Rate 102 H 94 H 92 H Respiratory 22 22 19 Rate Blood Pressure 123/67 123/67 123/67 O2 Sat by Pulse 97 94 98 Oximetry 09/16/16 09/16/16 09/16/16 01:50 02:00 02:07 Temperature Pulse Rate 93 H 95 H Respiratory 22 16 21 Rate Blood Pressure 123/67 139/79 O2 Sat by Pulse 96 97 Oximetry 09/16/16 09/16/16 09/16/16 02:10 02:20 02:30 Temperature Pulse Rate 89 95 H 95 H Respiratory 22 23 22 Rate Blood Pressure 139/79 139/79 139/79 O2 Sat by Pulse 97 96 96 Oximetry 09/16/16 09/16/16 09/16/16 02:40 02:50 03:00 Temperature Pulse Rate 94 H 95 H 94 H Respiratory 24 27 H 23 Rate Blood Pressure 139/79 139/79 132/81 O2 Sat by Pulse 96 96 96 Oximetry 09/16/16 09/16/16 09/16/16 03:10 03:20 03:30 Temperature Pulse Rate 94 H 94 H 92 H Respiratory 22 21 21 Rate Blood Pressure 132/81 132/81 132/81 O2 Sat by Pulse 96 96 96 Oximetry 09/16/16 09/16/1609/16/17 03:40 03:50 04:00 Temperature 98.4 F Pulse Rate 89 82 88 Respiratory 22 24 10 L Rate Blood Pressure 132/81 132/81 123/75 O2 Sat by Pulse 97 97 98 Oximetry 09/16/16 09/16/16 09/16/16 04:10 04:20 04:30 Temperature Pulse Rate 88 93 H 92 H Respiratory 24 22 22 Rate Blood Pressure 123/75 123/75 123/75 O2 Sat by Pulse 97 97 97 Oximetry 09/16/16 09/16/16 09/16/16 04:40 04:50 05:00 Temperature Pulse Rate 96 H 90 86 Respiratory 20 22 21 Rate Blood Pressure 123/75 123/75 141/93 O2 Sat by Pulse 98 97 99 Oximetry 09/16/16 09/16/16 09/16/16 05:10 05:20 05:30 Temperature Pulse Rate 85 87 87 Respiratory 23 22 22 Rate Blood Pressure 141/93 141/93 141/93 O2 Sat by Pulse 98 97 97 Oximetry 09/16/16 09/16/16 09/16/16 05:40 05:50 06:00 Temperature Pulse Rate 84 86 87 Respiratory 21 22 21 Rate Blood Pressure 141/93 141/93 133/79 O2 Sat by Pulse 98 98 98 Oximetry 09/16/16 09/16/16 09/16/16 06:10 06:20 06:30 Temperature Pulse Rate 86 88 86 Respiratory 21 22 19 Rate Blood Pressure 133/79 133/79 133/79 O2 Sat by Pulse 99 97 97 Oximetry 09/16/16 09/16/16 09/16/16 06:40 06:50 07:00 Temperature Pulse Rate 93 H 97 H 88 Respiratory 21 18 21 Rate Blood Pressure 133/79 133/79 132/84 O2 Sat by Pulse 98 98 100 Oximetry 09/16/16 09/16/16 09/16/16 07:10 07:20 07:30 Temperature Pulse Rate 81 87 85 Respiratory 23 22 21 Rate Blood Pressure 132/84 132/84 132/84 O2 Sat by Pulse 97 97 94 Oximetry 09/16/16 09/16/16 09/16/16 07:40 07:50 08:00 Temperature 98 F Pulse Rate 86 86 85 Respiratory 23 24 21 Rate Blood Pressure 132/84 132/84 141/85 O2 Sat by Pulse 99 99 96 Oximetry 09/16/16 09/16/16 09/16/16 08:10 08:20 08:30 Temperature Pulse Rate 96 H 90 97 H Respiratory 18 25 H 18 Rate Blood Pressure 141/85 141/85 141/85 O2 Sat by Pulse 98 98 98 Oximetry 09/16/16 08:40 Temperature Pulse Rate 85 Respiratory 22 Rate Blood Pressure 141/85 O2 Sat by Pulse 97 Oximetry - General Appearance General appearance: well-developed, well-nourished EENT: ATNC, PERRL, mucous membranes moist Neck: no JVD, no carotid bruit Respiratory: Present: Clear to Ascultation Cardiology: regular, S1S2 Gastrointestinal: normoactive bowel sounds Integumentary: no rash, warm and dry Neurologic: no focal deficit, no asterixis, alert and oriented x3 Musculoskeletal: other (no edema in BLE) Psychiatric: mood/affect appropriate, cooperative - Lab 09/16/16 05:00 09/16/16 05:00 Most recent lab results Calcium 8.0 mg/dL (8.4-10.2) L 09/16/16 05:00 Phosphorus 2.3 mg/dL (2.5-4.5) L 09/16/16 05:00
== END 2016-09-16 14:00 | disposition left against medical advice (07) | DRG 871 ==
LOC: ED 10:33 → 4A 22:05 → CC1 09-14 00:53
PROVIDERS: ADMIT Internal Medicine; ATTEND Internal Medicine
DX: A41.9 Sepsis, unspecified organism (principal); N17.0 Acute kidney failure with tubular necrosis; E87.1 Hypo-osmolality and hyponatremia; K62.5 Hemorrhage of anus and rectum; R57.9 Shock, unspecified; I95.9 Hypotension, unspecified; I10 Essential (primary) hypertension; F17.210 Nicotine dependence, cigarettes, uncomplicated; B19.20 Unspecified viral hepatitis C without hepatic coma; K52.9 Noninfective gastroenteritis and colitis, unspecified; F19.10 Other psychoactive substance abuse, uncomplicated; F10.10 Alcohol abuse, uncomplicated; G89.29 Other chronic pain; Z88.6 Allergy status to analgesic agent; Z88.1 Allergy status to other antibiotic agents; Z98.890 Other specified postprocedural states
CPT/HCPCS: 36415; 70450; 74176; 76770; 80048; 80053; 81001; 82550; 82553; 83690; 84100; 84484; 85007; 85025; 85610; 85730; 86160; 86618; 86850; 86900; 86901; 87040; 89050; 96361; 96374; J2060; J2405; J7030; J7042

== ENCOUNTER 2017-04-10 11:39 | Emergency (ER) | payer SELFPAY ==
[2017-04-10 14:25] LABS: Basophils % (Auto) 0.5 % (0.0-1.8); Eosinophils % (Auto) 7.3 % (0.0-4.3); Hematocrit 30.9 % (30.3-42.9); Hemoglobin 9.9 gm/dl (10.1-14.3); Mean Corpuscular HGB Conc 32 % (30-34); Mean Corpuscular Hemoglobin 25 pg (28-32); Mean Corpuscular Volume 79 fl (79-97); Platelet Count 219 K/mm3 (140-440); Red Blood Count 3.92 M/mm3 (3.65-5.03); Red Cell Distribution Width 16.3 % (13.2-15.2); White Blood Count 3.7 K/mm3 (4.5-11.0)
[2017-04-10 14:34] LABS: INR 1.12 (0.87-1.13)
[2017-04-10 14:35] LABS: Partial Thromboplastin Time 30.9 Sec. (24.2-36.6)
[2017-04-10 14:42] LABS: Alanine Aminotransferase 9 units/L (7-56); Albumin 3.4 g/dL (3.9-5); Albumin/Globulin Ratio 0.9 %; Alkaline Phosphatase 167 units/L (35-129); Anion Gap 17 mmol/L; BUN/Creatinine Ratio 27.14; Blood Urea Nitrogen 19 mg/dL (7-17); Calcium 9.1 mg/dL (8.4-10.2); Carbon Dioxide 25 mmol/L (22-30); Chloride 96.4 mmol/L (98-107); Glucose 75 mg/dL (65-100); Lipase 24 units/L (13-60); Potassium 3.9 mmol/L (3.6-5.0); Sodium 134 mmol/L (137-145); Total Protein 7.1 g/dL (6.3-8.2)
[2017-04-10 15:01] LABS: Bacteria,Urine 1+ /HPF (Negative); Bilirubin,Urine NEG (Negative); Blood,Urine NEG (Negative); Ketones,Urine NEG (Negative); Leukocyte Esterase,Urine TR (Negative); Mucus,Urine FEW /HPF; Nitrite,Urine NEG (Negative); Protein,Urine <15 mg/dL mg/dL (Negative); Urobilinogen,Urine < 2.0 mg/dL (<2.0)
--- NOTE | 2017-04-10 17:01 | Emergency Department Report ---
HPI - General Chief Complaint: Extremity Problem,Nontraumatic Time Seen by Provider: 04/10/17 16:43 - HPI HPI: Room 24 The patient is a 51-year-old female present with the chief complaint of bilateral lower extremity edema. The patient states for 3 weeks she has had bilateral lower extremity edema. Patient states the past 2 months she had pain in her aspect of the right thigh. Patient states she has suffered from bilateral lower extremity edema in the past but has never given a diagnosis. The patient is concerned it is related to her hepatitis C. The patient also mentions being depressed for the past 3 years but denies suicidal or homicidal ideation. Patient denies auditory or visual hallucinations. Location: Bilateral lower extremities Duration:. 3 Weeks Quality: Swelling Severity: moderate Modifying factors: [see above] Context: [see above] Mode of transportation: [not driving] ED Past Medical Hx - Past Medical History Previous Medical History?: Yes Hx Hypertension: Yes Additional medical history: vasculitis, chronic pain; Hep C - Surgical History Past Surgical History?: Yes Additional Surgical History: left hand - Family History Family history: no significant - Social History Smoking Status: Current Every Day Smoker (1/3 pack per day) Substance Use Type: None (denies illicit drug use), Alcohol (rarely) - Medications Home Medications: Home Medications Medication Instructions Recorded Confirmed Last Taken Type Lisinopril [Zestril] 20 mg PO QDAY 06/17/13 09/13/16 07/13/13 14:00 History Clindamycin [Clindamycin CAP] 300 mg PO BID 09/13/16 09/13/16 Unknown History Gabapentin [Neurontin] 300 mg PO TID 09/13/16 09/13/16 Unknown History Sulfamethoxazole/Trimethoprim 1 tab PO BID 09/13/16 09/13/16 Unknown History [Bactrim DS TAB] busPIRone [Buspar] 10 mg PO BID 09/13/16 09/13/16 Unknown History traZODone [Desyrel] 100 mg PO QHS 09/13/16 09/13/16 Unknown History HYDROcodone/APAP 5-325 [[place] 1 each PO Q6HR PRN #16 tablet 10/12/16 Unknown Rx 5/325] Furosemide [Lasix] 20 mg PO QDAY #7 tablet 04/10/17 Unknown Rx traMADol [Ultram] 50 mg PO Q6HR PRN #10 tablet 04/10/17 Unknown Rx ED Review of Systems ROS: Stated complaint: LEGS PAIN Other details as noted in HPI Comment: All other systems reviewed and negative Constitutional: denies: chills, fever Eyes: denies: eye pain, eye discharge, vision change ENT: denies: ear pain, throat pain Respiratory: denies: cough, shortness of breath, wheezing Cardiovascular: denies: chest pain, palpitations Endocrine: no symptoms reported Gastrointestinal: denies: abdominal pain, nausea, diarrhea Genitourinary: denies: urgency, dysuria, discharge Musculoskeletal: arthralgia, myalgia Skin: rash Neurological: denies: headache, weakness, paresthesias Psychiatric: depression. denies: anxiety Hematological/Lymphatic: other (bilateral lower extremity edema). denies: easy bleeding, easy bruising Physical Exam - Physical Exam Vital Signs: Vital Signs 04/10/17 13:45 Temperature 98.0 F Pulse Rate 70 Respiratory 16 Rate Blood Pressure 119/78 Physical Exam: GENERAL: The patient is well-developed well-nourished female lying on stretcher not appearing to be in acute distress. [] HEENT: Normocephalic. Atraumatic. Extraocular motions are intact. Patient has moist mucous membranes. NECK: Supple. Trachea midline CHEST/LUNGS: Clear to auscultation. There is no respiratory distress noted. HEART/CARDIOVASCULAR: Regular. There is no tachycardia. There is no gallop rub or murmur. ABDOMEN: Abdomen is soft, nontender. Patient has normal bowel sounds. There is no abdominal distention. SKIN: There is a red papular rash encompassing the anterior aspect bilateral lower extremities tracking superiorly along the medial aspect of bilateral thighs. There is an underlying chronic appearance of this rash with chronic hyperpigmentation. There is 2+ bilateral lower extremity pitting edema. There is no diaphoresis. NEURO: The patient is awake, alert, and oriented. The patient is cooperative. The patient has normal speech MUSCULOSKELETAL: There is no evidence of acute injury. ED Course Vital Signs 04/10/17 13:45 Temperature 98.0 F Pulse Rate 70 Respiratory 16 Rate Blood Pressure 119/78 - Consultations Consultation #1: 04/10/17 17:23 Case discussed with MH identity management consultant- patient may be discharged ED Medical Decision Making - Lab Data Result diagrams: 04/10/17 14:04 04/10/17 14:04 Laboratory Tests 04/10/17 04/10/17 04/10/17 14:02 14:04 14:04 WBC 3.7 L RBC 3.92 Hgb 9.9 L Hct 30.9 MCV 79 MCH 25 L MCHC 32 RDW 16.3 H Plt Count 219 Lymph % (Auto) 19.8 [place] % (Auto) 8.4 H Eos % (Auto) 7.3 H Baso % (Auto) 0.5 Lymph # 0.7 L [place] # 0.3 Eos # 0.3 Baso # 0.0 Seg Neutrophils % 64.0 Seg Neutrophils # 2.4 PT 14.3 INR 1.12 APTT 30.9 Sodium Potassium Chloride Carbon Dioxide Anion Gap BUN Creatinine Estimated GFR BUN/Creatinine Ratio Glucose Calcium Total Bilirubin AST ALT Alkaline Phosphatase Ammonia NT-Pro-B Natriuret Pep Total Protein Albumin Albumin/Globulin Ratio Lipase Urine Color Yellow Urine Turbidity Slightly-cloudy Urine pH 5.0 Ur Specific [place] 1.017 Urine Protein <15 mg/dl Urine Glucose (UA) Neg Urine Ketones Neg Urine Blood Neg Urine Nitrite Neg Urine Bilirubin Neg Urine Urobilinogen < 2.0 Ur Leukocyte Esterase Tr Urine WBC (Auto) 17.0 H Urine RBC (Auto) 7.0 U Epithel Cells (Auto) 13.0 Urine Bacteria (Auto) 1+ Hyaline Casts 1 Urine Mucus Few 04/10/17 04/10/17 04/10/17 14:04 14:04 14:04 WBC RBC Hgb Hct MCV MCH MCHC RDW Plt Count Lymph % (Auto) [place] % (Auto) Eos % (Auto) Baso % (Auto) Lymph # [place] # Eos # Baso # Seg Neutrophils % Seg Neutrophils # PT INR APTT Sodium 134 L Potassium 3.9 Chloride 96.4 L Carbon Dioxide 25 Anion Gap 17 BUN 19 H Creatinine 0.7 Estimated GFR > 60 BUN/Creatinine Ratio 27.14 Glucose 75 Calcium 9.1 Total Bilirubin 0.80 AST 23 ALT 9 Alkaline Phosphatase 167 H Ammonia 27.0 NT-Pro-B Natriuret Pep 184.9 Total Protein 7.1 Albumin 3.4 L Albumin/Globulin Ratio 0.9 Lipase 24 Urine Color Urine Turbidity Urine pH Ur Specific [place] Urine Protein Urine Glucose (UA) Urine Ketones Urine Blood Urine Nitrite Urine Bilirubin Urine Urobilinogen Ur Leukocyte Esterase Urine WBC (Auto) Urine RBC (Auto) U Epithel Cells (Auto) Urine Bacteria (Auto) Hyaline Casts Urine Mucus - Differential Diagnosis CHF, renal failure, hypoalbuminemia, lymphedema, vascular insufficiency Critical care attestation.: If time is entered above; I have spent that time in minutes in the direct care of this critically ill patient, excluding procedure time. ED Disposition Clinical Impression: Bilateral lower extremity edema Disposition: TO HOME OR SELFCARE Is pt being admited?: No Does the pt Need Aspirin: No Condition: Stable Instructions: Leg Edema (ED) Additional Instructions: Return to the emergency department immediately should you develop worsening symptoms, fever, inability to tolerate food or liquid or any other concerns. Prescriptions: Furosemide [Lasix] 20 mg PO QDAY #7 tablet traMADol [Ultram] 50 mg PO Q6HR PRN #10 tablet PRN Reason: Pain Referrals: PRIMARY CARE, [Primary Care Provider] - 3-5 Days [facility] [Outside] - 3-5 Days [facility] [Outside] - 3-5 Days Time of Disposition: 17:23
[2017-04-10 17:39] VITALS: BP 131/96
== END 2017-04-10 17:38 | disposition home or self-care (01) ==
LOC: ED 11:39
DX: R60.0 Localized edema (principal); I10 Essential (primary) hypertension; F17.200 Nicotine dependence, unspecified, uncomplicated
CPT/HCPCS: 36415; 80053; 81001; 82140; 83690; 83880; 85025; 85610; 85730

== ENCOUNTER 2018-09-10 14:09 | Emergency (ER) | payer SELFPAY ==
--- NOTE | 2018-09-10 14:18 | Emergency Department Report ---
Blank Doc - Documentation Documentation: This is a 52-year-old female that presents with left lower abdominal pain. Efra munoz stated has some nausea with no vomiting. Denies any radiation of pain. Denies any other complaints. Patient stated she is on cipro now for bronchitis. Denies any urinary symptoms. Patient is also c/o of left side "wound" in the tongue for about 2 months. Patient denies any trauma. Will order labs Sent to [facility] for further evaluation and treatment
[2018-09-10 14:19] VITALS: BP 138/86
[2018-09-10 14:53] LABS: Basophils % (Auto) 0.9 % (0.0-1.8); Eosinophils # (Auto) 0.4 K/mm3 (0.0-0.4); Eosinophils % (Auto) 9.2 % (0.0-4.3); Hematocrit 31.9 % (30.3-42.9); Hemoglobin 10.3 gm/dl (10.1-14.3); Lymphocytes # (Auto) 1.1 K/mm3 (1.2-5.4); Lymphocytes % (Auto) 24.9 % (13.4-35.0); Mean Corpuscular HGB Conc 32 % (30-34); Mean Corpuscular Volume 80 fl (79-97); Monocytes # (Auto) 0.3 K/mm3 (0.0-0.8); Platelet Count 189 K/mm3 (140-440); Red Blood Count 3.98 M/mm3 (3.65-5.03)
[2018-09-10 15:13] LABS: Albumin 3.5 g/dL (3.9-5)
--- NOTE | 2018-09-10 15:42 | Emergency Department Report ---
ED General Adult HPI - General Chief complaint: Abdominal Pain Stated complaint: LEFT SIDED ABD PAIN Time Seen by Provider: 09/10/18 14:11 Source: patient Mode of arrival: Ambulatory Limitations: No Limitations - History of Present Illness Initial comments: Patient is a 52-year-old female who has a complex past history for last 2 years with several instances where she is had medical noncompliance with follow-up. The patient year ago was admitted to the hospital secondary to hypotension. Was found that the patient had the enteritis with slow GI bleed as well as hematuria and a mass on her left kidney. Patient did not go for follow- up secondary to her finances. Patient states for the last 2 months she has had persistent hematuria and every morning has some left-sided abdominal pain. Patient denies any nausea vomiting fevers or chills. She is denies any dysuria or vaginal discharge at this time. Also patient states the last 2 months the patient has had a lesion on the left bottom of the tip of her tongue. She states there is some discomfort with this lesion with no bleeding. Patient is not sure what this lesion is still from but she is a heavy smoker. Severity scale (0 -10): 7 - Related Data Home Medications Medication Instructions Recorded Confirmed Last Taken Lisinopril [Zestril] 20 mg PO QDAY 06/17/13 09/13/16 07/13/13 14:00 Clindamycin [Clindamycin CAP] 300 mg PO BID 09/13/16 09/13/16 Unknown Gabapentin [Neurontin] 300 mg PO TID 09/13/16 09/13/16 Unknown Sulfamethoxazole/Trimethoprim 1 tab PO BID 09/13/16 09/13/16 Unknown [Bactrim DS TAB] busPIRone [Buspar] 10 mg PO BID 09/13/16 09/13/16 Unknown traZODone [Desyrel] 100 mg PO QHS 09/13/16 09/13/16 Unknown Previous Rx's Medication Instructions Recorded Last Taken Type HYDROcodone/APAP 5-325 [[place] 1 each PO Q6HR PRN #16 tablet 10/12/16 Unknown Rx 5/325] Furosemide [Lasix] 20 mg PO QDAY #7 tablet 04/10/17 Unknown Rx traMADol [Ultram] 50 mg PO Q6HR PRN #10 tablet 04/10/17 Unknown Rx Chlorhexidine Mouthwash [Peridex] 15 ml MM BID #1 bottle 09/10/18 Unknown Rx HYDROcodone/APAP 5-325 [[place] 1 each PO Q6HR PRN #15 tablet 09/10/18 Unknown Rx 5/325] Nitrofurantoin Monohyd/M-Cryst 100 mg PO BID #14 capsule 09/10/18 Unknown Rx [Macrobid 100 mg Capsule] Allergies Allergy/AdvReac Type Severity Reaction Status Date / Time aspirin Allergy Unknown Verified 09/10/18 14:10 cephalexin monohydrate Allergy Rash Verified 09/10/18 14:10 [From Keflex] ED Review of Systems ROS: Stated complaint: LEFT SIDED ABD PAIN Other details as noted in HPI Comment: All other systems reviewed and negative ED Past Medical Hx - Past Medical History Hx Hypertension: Yes Hx Congestive Heart Failure: No Hx Diabetes: No Hx Asthma: No Hx COPD: No Additional medical history: vasculitis, chronic pain; Hep C - Surgical History Additional Surgical History: left hand - Social History Smoking Status: Current Every Day Smoker Substance Use Type: Prescribed, Other - Medications Home Medications: Home Medications Medication Instructions Recorded Confirmed Last Taken Type Lisinopril [Zestril] 20 mg PO QDAY 06/17/13 09/13/16 07/13/13 14:00 History Clindamycin [Clindamycin CAP] 300 mg PO BID 09/13/16 09/13/16 Unknown History Gabapentin [Neurontin] 300 mg PO TID 09/13/16 09/13/16 Unknown History Sulfamethoxazole/Trimethoprim 1 tab PO BID 09/13/16 09/13/16 Unknown History [Bactrim DS TAB] busPIRone [Buspar] 10 mg PO BID 09/13/16 09/13/16 Unknown History traZODone [Desyrel] 100 mg PO QHS 09/13/16 09/13/16 Unknown History HYDROcodone/APAP 5-325 [[place] 1 each PO Q6HR PRN #16 tablet 10/12/16 Unknown Rx 5/325] Furosemide [Lasix] 20 mg PO QDAY #7 tablet 04/10/17 Unknown Rx traMADol [Ultram] 50 mg PO Q6HR PRN #10 tablet 04/10/17 Unknown Rx Chlorhexidine Mouthwash [Peridex] 15 ml MM BID #1 bottle 09/10/18 Unknown Rx HYDROcodone/APAP 5-325 [[place] 1 each PO Q6HR PRN #15 tablet 09/10/18 Unknown Rx 5/325] Nitrofurantoin Monohyd/M-Cryst 100 mg PO BID #14 capsule 09/10/18 Unknown Rx [Macrobid 100 mg Capsule] ED Physical Exam - General Limitations: No Limitations General appearance: alert, in no apparent distress - Head Head exam: Present: atraumatic, normocephalic - Eye Eye exam: Present: normal appearance - ENT ENT exam: Present: mucous membranes moist - Neck Neck exam: Present: normal inspection - Respiratory Respiratory exam: Present: normal lung sounds bilaterally. Absent: respiratory distress, wheezes, rales, rhonchi - Cardiovascular Cardiovascular Exam: Present: regular rate, normal rhythm. Absent: systolic murmur, diastolic murmur, rubs, gallop - GI/Abdominal GI/Abdominal exam: Present: soft, normal bowel sounds. Absent: distended, tenderness (there is no reproducible left lower quadrant tenderness. There is no mass felt.), guarding, rebound, rigid - Extremities Exam Extremities exam: Present: normal inspection - Back Exam Back exam: Present: normal inspection - Neurological Exam Neurological exam: Present: alert, oriented X3 - Psychiatric Psychiatric exam: Present: normal affect, normal mood - Skin Skin exam: Present: warm, dry, intact, normal color. Absent: rash ED Course Vital Signs 09/10/18 14:15 Temperature 97.9 F Pulse Rate 99 H Respiratory 16 Rate Blood Pressure 138/86 O2 Sat by Pulse 98 Oximetry ED Medical Decision Making - Lab Data Result diagrams: 09/10/18 14:35 09/10/18 14:35 Lab Results 09/10/18 09/10/18 09/10/18 Range/Units 14:35 14:35 14:35 WBC 4.2 L (4.5-11.0) K/mm3 RBC 3.98 (3.65-5.03) M/mm3 Hgb 10.3 (10.1-14.3) gm/dl Hct 31.9 (30.3-42.9) % MCV 80 (79-97) fl MCH 26 L (28-32) pg MCHC 32 (30-34) % RDW 17.0 H (13.2-15.2) % Plt Count 189 (140-440) K/mm3 Lymph % (Auto) 24.9 (13.4-35.0) % [place] % (Auto) 8.0 H (0.0-7.3) % Eos % (Auto) 9.2 H (0.0-4.3) % Baso % (Auto) 0.9 (0.0-1.8) % Lymph # 1.1 L (1.2-5.4) K/mm3 [place] # 0.3 (0.0-0.8) K/mm3 Eos # 0.4 (0.0-0.4) K/mm3 Baso # 0.0 (0.0-0.1) K/mm3 Seg Neutrophils % 57.0 (40.0-70.0) % Seg Neutrophils # 2.4 (1.8-7.7) K/mm3 Sodium 139 (137-145) mmol/L Potassium 4.3 (3.6-5.0) mmol/L Chloride 103.3 (98-107) mmol/L Carbon Dioxide 23 (22-30) mmol/L Anion Gap 17 mmol/L BUN 13 (7-17) mg/dL Creatinine 1.0 (0.7-1.2) mg/dL Estimated GFR 58 ml/min BUN/Creatinine Ratio 13 % Glucose 84 (65-100) mg/dL Calcium 9.0 (8.4-10.2) mg/dL Total Bilirubin 0.20 (0.1-1.2) mg/dL AST 33 (5-40) units/L ALT 18 (7-56) units/L Alkaline Phosphatase 94 (35-129) units/L Total Protein 6.6 (6.3-8.2) g/dL Albumin 3.5 L (3.9-5) g/dL Albumin/Globulin Ratio 1.1 % Lipase 36 (13-60) units/L HCG, Qual Negative (Negative) Urine Color (Yellow) Urine Turbidity (Clear) Urine pH (5.0-7.0) Ur Specific [place] (1.003-1.030) Urine Protein (Negative) mg/dL Urine Glucose (UA) (Negative) mg/dL Urine Ketones (Negative) mg/dL Urine Blood (Negative) Urine Nitrite (Negative) Urine Bilirubin (Negative) Urine Urobilinogen (<2.0) mg/dL Ur Leukocyte Esterase (Negative) Urine WBC (Auto) (0.0-6.0) /HPF Urine RBC (Auto) (0.0-6.0) /HPF U Epithel Cells (Auto) (0-13.0) /HPF 09/10/18 Range/Units 15:25 WBC (4.5-11.0) K/mm3 RBC (3.65-5.03) M/mm3 Hgb (10.1-14.3) gm/dl Hct (30.3-42.9) % MCV (79-97) fl MCH (28-32) pg MCHC (30-34) % RDW (13.2-15.2) % Plt Count (140-440) K/mm3 Lymph % (Auto) (13.4-35.0) % [place] % (Auto) (0.0-7.3) % Eos % (Auto) (0.0-4.3) % Baso % (Auto) (0.0-1.8) % Lymph # (1.2-5.4) K/mm3 [place] # (0.0-0.8) K/mm3 Eos # (0.0-0.4) K/mm3 Baso # (0.0-0.1) K/mm3 Seg Neutrophils % (40.0-70.0) % Seg Neutrophils # (1.8-7.7) K/mm3 Sodium (137-145) mmol/L Potassium (3.6-5.0) mmol/L Chloride (98-107) mmol/L Carbon Dioxide (22-30) mmol/L Anion Gap mmol/L BUN (7-17) mg/dL Creatinine (0.7-1.2) mg/dL Estimated GFR ml/min BUN/Creatinine Ratio % Glucose (65-100) mg/dL Calcium (8.4-10.2) mg/dL Total Bilirubin (0.1-1.2) mg/dL AST (5-40) units/L ALT (7-56) units/L Alkaline Phosphatase (35-129) units/L Total Protein (6.3-8.2) g/dL Albumin (3.9-5) g/dL Albumin/Globulin Ratio % Lipase (13-60) units/L HCG, Qual (Negative) Urine Color Yellow (Yellow) Urine Turbidity Slightly-cloudy (Clear) Urine pH 5.0 (5.0-7.0) Ur Specific [place] 1.016 (1.003-1.030) Urine Protein 30 mg/dl (Negative) mg/dL Urine Glucose (UA) Neg (Negative) mg/dL Urine Ketones Neg (Negative) mg/dL Urine Blood Lg (Negative) Urine Nitrite Neg (Negative) Urine Bilirubin Neg (Negative) Urine Urobilinogen < 2.0 (<2.0) mg/dL Ur Leukocyte Esterase Lg (Negative) Urine WBC (Auto) 44.0 H (0.0-6.0) /HPF Urine RBC (Auto) > 182.0 (0.0-6.0) /HPF U Epithel Cells (Auto) 3.0 (0-13.0) /HPF - Medical Decision Making Patient to be treated for urinary tract infection. Patient also has been urged to follow-up with ENT for the lesion in her mouth as well as urology to follow up with the kidney mass present patient has. Critical care attestation.: If time is entered above; I have spent that time in minutes in the direct care of this critically ill patient, excluding procedure time. ED Disposition Clinical Impression: Kidney mass, UTI (urinary tract infection), Tongue lesion Disposition: - TO HOME OR SELFCARE Is pt being admited?: No Does the pt Need Aspirin: No Condition: Stable Instructions: Urinary Tract Infection in Women (ED) Referrals: MONA MERINO DO [Primary Care Provider] - 3-5 Days NIMCO SAEZ MD [Staff Physician] - 3-5 Days NOEMÍ THOMPSON MD [Staff Physician] - 3-5 Days [facility] [Outside] - 3-5 Days Time of Disposition: 17:16
[2018-09-10 16:13] LABS: Bilirubin,Urine NEG (Negative); Blood,Urine LG (Negative); Color,Urine Yellow (Yellow); Urobilinogen,Urine < 2.0 mg/dL (<2.0)
[2018-09-10 16:16] LABS: RBC,Urine > 182.0 /HPF (0.0-6.0)
== END 2018-09-10 17:24 | disposition home or self-care (01) ==
LOC: ED 14:09
DX: N39.0 Urinary tract infection, site not specified (principal); N28.89 Other specified disorders of kidney and ureter; K14.9 Disease of tongue, unspecified; I10 Essential (primary) hypertension; F17.200 Nicotine dependence, unspecified, uncomplicated; Z88.8 Allergy status to other drugs, medicaments and biological substances; Z88.1 Allergy status to other antibiotic agents
CPT/HCPCS: 36415; 80053; 81001; 83690; 84703; 85025